=== PATIENT | male | born 1935 | race Caucasian/White ===

== ENCOUNTER 2017-03-18 13:37 | Inpatient (IN) | payer OTHER ==
[2017-03-18 16:03] VITALS: BMI 20.7
--- NOTE | 2017-03-18 18:34 | HP ---
Admission ROS [facility] Chief Complaint: I WANT TO GO TO REHAB Allergies/Adverse Reactions: Allergies Allergy/AdvReac Type Severity Reaction Status Date / Time No Known Allergies Allergy Verified 03/18/17 17:45 History of Present Illness: 81 YEARS OLD MALE WITH LONG HISTORY OF ALCOHOL NICOTINE DEPENDENCE HAS BPH HYPERTENSION HYPERLIPIDEMIA, CARDIAC STENT 2016 CANE FOR AMBULATION AND DEPRESSION IS ADMITTED TO REHAB Exam Limitations: No Limitations - Ebola screening Have you traveled outside of the country in the last 21 days: No Have you had contact with anyone from an Ebola affected area: No Have you been sick,other than usual withdrawal symptoms: No Do you have a fever: No - Review of Systems Constitutional: No Symptoms Reported EENT: reports: Blurred Vision (EYE GLASSES), Other (GLAUCOMA) Respiratory: reports: No Symptoms reported Cardiac: reports: Chest Pain (CHRONIC CHEST PAIN X 2 YEARS TREATED WITH NITRO SL , LAST DOSE 10/2016) GI: reports: No Symptoms Reported : reports: Frequency Musculoskeletal: reports: Joint Pain (KNEES ARTHRITIS - CANE) Integumentary: reports: No Symptoms Reported Neuro: reports: No Symptoms reported Endocrine: reports: No Symptoms Reported Hematology: reports: Blood Clots (CARDIOVASCULAR - PLAVIX) Psychiatric: reports: Judgement Intact, Mood/Affect Appropiate, Orientated x3 Other Systems: Reviewed and Negative Patient History - Patient Medical History Hx Anemia: No Hx Asthma: No Hx Chronic Obstructive Pulmonary Disease (COPD): No Hx Cancer: No Hx Cardiac Disorders: Yes (STENT 2015) Hx Congestive Heart Failure: No Hx Hypertension: Yes Hx Hypercholesterolemia: Yes Hx Pacemaker: No HX Cerebrovascular Accident: No Hx Seizures: No Hx Dementia: No Hx Diabetes: No Hx Gastrointestinal Disorders: No Hx Liver Disease: No Hx Genitourinary Disorders: Yes Hx Sexually Transmitted Disorders: No Hx Renal Disease (ESRD): No Hx Thyroid Disease: No Hx Human Immunodeficiency Virus (HIV): No Hx Hepatitis C: No Hx Depression: No Hx Suicide Attempt: No Hx Bipolar Disorder: No Hx Schizophrenia: No - Patient Surgical History Past Surgical History: Yes Hx Cataract Extraction: Yes (LEFT 2015) Hx Cardiac Surgery: Yes (STENT 2015) Hx Lung Surgery: No Hx Breast Surgery: No Hx Breast Biopsy: No Hx Abdominal Surgery: No Hx Appendectomy: No Hx Cholecystectomy: No Hx Genitourinary Surgery: No Hx Orthopedic Surgery: No Anesthesia Reaction: No - PPD History Previous Implant?: Yes Documented Results: Negative w/o proof Implanted On Prior [facility] Admission?: No PPD to be Administered?: Yes - Smoking Cessation Smoking history: Current every day smoker Have you smoked in the past 12 months: Yes Aproximately how many cigarettes per day: 10 Cigars Per Day: 0 Hx Chewing Tobacco Use: No Initiated information on smoking cessation: Yes 'Breaking Loose' booklet given: 03/18/17 - Substance & Tx. History Hx Alcohol Use: Yes Hx Substance Use: No Substance Use Type: Alcohol Hx Substance Use Treatment: Yes ([facility] 01/2017) - Substances Abused Alcohol Route: Oral Frequency: Daily Amount used: 1/2 PINT MAT Age of first use: 13 Date of Last Use: 03/03/17 Family Disease History - Family Disease History Family Disease History: Heart Disease: Brother (), CA: Mother () , Other: Father (), Mother, Brother, Sister () Admission Physical Exam S - Vital Signs Vital Signs: Vital Signs - 24 hr 03/18/17 15:54 Temperature 98.5 F Pulse Rate 71 Respiratory 18 Rate Blood Pressure 160/80 - Physical General Appearance: Yes: No Apparent Distress, Appropriately Dressed, Thin HEENTM: Yes: Hearing grossly Normal, Normal ENT Inspection, Normocephalic, Normal Voice, Other (EYE GLASSES GLAUCOMA) Respiratory: Yes: Chest Non-Tender, Lungs Clear, Normal Breath Sounds, No Respiratory Distress, No Accessory Muscle Use Neck: Yes: Supple, Trachea in good position Breast: Yes: Breasts Symetrical Cardiology: Yes: Regular Rhythm, Regular Rate, S1, S2 Abdominal: Yes: Non Tender, Soft, Decreased BS Genitourinary: Yes: Within Normal Limits Back: Yes: Normal Inspection Musculoskeletal: Yes: full range of Motion (SLOW LEGS CHANGING POSITION), Gait Steady (CANE), Muscle Pain (KNEES) Extremities: Yes: Non-Tender Neurological: Yes: Fully Oriented, Alert, Normal Mood/Affect, Normal Response Integumentary: Yes: Warm Lymphatic: Yes: Within Normal Limits - Diagnostic (1) Glaucoma Current Visit: Yes Status: Chronic Qualifiers: Glaucoma type: unspecified Laterality: unspecified laterality Qualified Code(s): H40.9 - Unspecified glaucoma (2) BPH (benign prostatic hyperplasia) Current Visit: Yes Status: Chronic Qualifiers: Lower urinary tract symptom presence: symptoms absent Qualified Code (s): N40.0 - Benign prostatic hyperplasia without lower urinary tract symptoms (3) Hypertension Current Visit: Yes Status: Chronic Qualifiers: Hypertension type: essential hypertension Qualified Code(s): I10 - Essential (primary) hypertension (4) Hyperlipidemia Current Visit: Yes Status: Chronic Qualifiers: Hyperlipidemia type: pure hypercholesterolemia Qualified Code(s): E78.00 - Pure hypercholesterolemia, unspecified; E78.0 - Pure hypercholesterolemia (5) Nicotine dependence Current Visit: Yes Status: Acute Qualifiers: Nicotine product type: cigarettes Substance use status: in withdrawal Qualified Code(s): F17.213 - Nicotine dependence, cigarettes, with withdrawal (6) Alcohol dependence with uncomplicated withdrawal Current Visit: Yes Status: Acute (7) S/P arterial stent Current Visit: Yes Status: Chronic (8) Chronic chest pain Current Visit: Yes Status: Chronic (9) Use of cane as ambulatory aid Current Visit: Yes Status: Chronic Cleared for Admission [facility] - Detox or Rehab [facility] Level of Care: Observation Bed Detox Regimen/Protocol: Not Applicable Claeared for Rehab Admission: Yes [facility] Breath Alcohol Content Breath Alcohol Content: 0 Urine Drug Screen - Results Drug Screen Negative: Yes
[2017-03-18] MEDS ORDERED: MAGNESIUM CITRATE 300 ML BOTTLE PO PRN (18:47)
[2017-03-18] MEDS ORDERED: LOPERAMIDE HCL 2 MG CAPSULE PO PRN (18:47)
[2017-03-18] MEDS ORDERED: MENTHOL/PHENOL 1 EACH UD MM PRN (18:47)
[2017-03-18] MEDS ORDERED: NICOTINE POLACRILEX 2 MG GUM BUC PRN (18:47)
[2017-03-18] MEDS ORDERED: hydrOXYzine PAMOATE 50 MG CAPSULE (FP) PO PRN (18:47)
[2017-03-18] MEDS ORDERED: ACETAMINOPHEN 325 MG TABLET (FP) PO PRN (18:47)
[2017-03-18] MEDS ORDERED: MAGNESIUM HYDROX 2400MG/30ML ORAL SUSPENSION 30 ML CUP PO PRN (18:47)
[2017-03-18] MEDS ORDERED: guaiFENesin/D-METHORPHAN HB 10 ML UNIT-DOSE CUPS PO PRN (18:47)
[2017-03-18] MEDS ORDERED: MAG HYDROX/AL HYDROX/SIMETH 30 ML UNIT-DOSE CUP PO PRN (18:47)
[2017-03-18] MEDS ORDERED: DOCUSATE SODIUM 100 MG CAPSULE (FP) PO PRN (18:56)
[2017-03-18] MEDS ORDERED: ATORVASTATIN CA 40 MG TABLET (FP) ONE (21:59)
[2017-03-18] MEDS ORDERED: TUBERCULIN PPD 5 TU/0.1ML VIAL ID ONE (22:00)
[2017-03-18] MEDS: ASPIRIN 81 MG CHEWABLE TABLETS PO SCH (22:08)
[2017-03-18] MEDS: METOPROLOL SUCCINATE 50 MG TAB.SR.24H (FP) PO SCH (22:09)
[2017-03-18] MEDS: CLOPIDOGREL BISULFATE 75 MG TABLET (FP) PO SCH (22:09)
[2017-03-18] MEDS: THIAMINE HCL 100 MG TABLET (FP) PO SCH (22:09)
[2017-03-18] MEDS: ATORVASTATIN CA 80 MG TABLET (FP) PO SCH (22:09)
[2017-03-18] MEDS: LISINOPRIL 5 MG TABLET (FP) PO SCH (22:09)
[2017-03-19] MEDS: METOPROLOL SUCCINATE 50 MG TAB.SR.24H (FP) PO SCH ×2 (08:03→10:21)
[2017-03-19] MEDS: LISINOPRIL 5 MG TABLET (FP) PO SCH ×2 (08:03→10:21)
[2017-03-19] MEDS ORDERED: ASPIRIN 81 MG CHEWABLE TABLETS PO SCH (10:00)
[2017-03-19 10:16] LABS: MCH 33.8 pg (25.7-33.7); MEAN CELL VOLUME 102.7 fl (80-96); PLATELET COUNT 177 K/MM3 (134-434); RDW 15.8 % (11.9-15.9); WHITE BLOOD COUNT 4.3 K/mm3 (4.0-10.0)
[2017-03-19] MEDS: CLOPIDOGREL BISULFATE 75 MG TABLET (FP) PO SCH (10:20)
[2017-03-19] MEDS: TAMSULOSIN HCL 0.4 MG CAP.ER.24H (FP) PO SCH (10:20)
[2017-03-19] MEDS: PRENATAL VITAMINS W/ FOLIC ACID TABLET (FP) PO SCH (10:20)
[2017-03-19] MEDS: NICOTINE 14 MG/24 HOURS TOPICAL PATCH TD SCH (10:20)
[2017-03-19] MEDS: ASPIRIN 81 MG CHEWABLE TABLETS PO SCH (10:20)
[2017-03-19] MEDS: TIMOLOL 0.5% OPHTHALMIC SOL 5 ML BOTTLE OU SCH ×3 (10:22→21:52)
[2017-03-19 10:28] LABS: ALBUMIN 3.3 g/dl (3.4-5.0); ANION GAP 5 (8-16); BILIRUBIN,TOTAL 0.7 mg/dL (0.2-1.0); CALCIUM 9.5 mg/dL (8.5-10.1); CO2 32 mmol/L (21-32); CREATININE 0.8 mg/dL (0.7-1.3); GLUCOSE,RANDOM 110 mg/dL (74-106); SGOT/AST 22 U/L (15-37); SGPT/ALT 21 U/L (12-78); TOT PROT 6.9 g/dl (6.4-8.2)
[2017-03-19 10:30] LABS: ALK PHOS 89 U/L (45-117)
[2017-03-19] MEDS: POLYETHYLENE GLYCOL 3350 119 GM BTL PO SCH (11:00)
[2017-03-19] MEDS: LATANOPROST 0.005% OPHTH SOLN 2.5ML BOTTLE OU SCH ×2 (11:05→21:52)
--- NOTE | 2017-03-19 11:17 | HP ---
Psychiatrist Admission - Data Date of interview: 03/19/17 Admission source: [facility] Identifying data: This is the first 5N inaptient rehabiltation admission for this 81 year old single Edgardo male, retired residing in assistent living house. Medical History: Patient reports history of BPH, HTN, hyperlipidemia, stents placed in 2016, glaucoma, left cataract extraction and arthritis in both knees. Smokes cigarettes 1/2 daily. Psychiatric History: Patient reports seen by a psychiatrist while in rehabilitation treatment to address depressed mood, no medications recommeded. Reports he also has a "gambling problems", spends "littile money for alcohol, cigarettes, playing lotto", feels depressed, sad, hopeless, states he needs help. Physical/Sexual Abuse/Trauma History: Denies history of abuse. Vital Signs: Vital Signs - 24 hr 03/18/17 03/18/17 03/19/17 15:54 22:07 00:33 Temperature 98.5 F 98.4 F Pulse Rate 71 65 Respiratory 18 18 18 Rate Blood Pressure 160/80 193/94 03/19/17 03:30 Temperature Pulse Rate Respiratory 18 Rate Blood Pressure Allergies/Adverse Reactions: Allergies Allergy/AdvReac Type Severity Reaction Status Date / Time No Known Allergies Allergy Verified 03/18/17 17:45 Date of last physical exam: 03/18/17 Concur with the findings of this exam: Yes - Substance Abuse/Tx History Hx Alcohol Use: Yes Hx Substance Use: No Substance Use Type: Alcohol (started at age 13, "I drink everything" daily ) Hx Substance Use Treatment: Yes - Admission Criteria Previous failed treatment: Yes Poor recovery environment: Yes Comorbidities: Yes Lacks judgement: Yes Mental Status Exam - Mental Status Exam Alert and Oriented to: Time, Place, Person Cognitive Function: Good Patient Appearance: Well Groomed Mood: Depressed, Sad, Anxious Affect: Appropriate Patient Behavior: Appropriate, Cooperative Speech Pattern: Clear, Appropriate Voice Loudness: Normal Thought Process: Intact, Goal Oriented Thought Disorder: Not Present Hallucinations: Denies Suicidal Ideation: Denies Homicidal Ideation: Denies Insight/Judgement: Fair Sleep: Difficulty falling asleep Appetite: Poor Muscle strength/Tone: Normal Gait/Station: Other (walking with a cane) Psychiatric Findings - Problem List (Premium 1, 2,3) (1) Nicotine dependence Current Visit: Yes Status: Acute Qualifiers: Nicotine product type: cigarettes Substance use status: in withdrawal Qualified Code(s): F17.213 - Nicotine dependence, cigarettes, with withdrawal (2) Chronic chest pain Current Visit: Yes Status: Chronic (3) Glaucoma Current Visit: Yes Status: Chronic Qualifiers: Glaucoma type: unspecified Laterality: unspecified laterality Qualified Code(s): H40.9 - Unspecified glaucoma (4) Hyperlipidemia Current Visit: Yes Status: Chronic Qualifiers: Hyperlipidemia type: pure hypercholesterolemia Qualified Code(s): E78.00 - Pure hypercholesterolemia, unspecified; E78.0 - Pure hypercholesterolemia (5) Hypertension Current Visit: Yes Status: Chronic Qualifiers: Hypertension type: essential hypertension Qualified Code(s): I10 - Essential (primary) hypertension (6) S/P arterial stent Current Visit: Yes Status: Chronic (7) Use of cane as ambulatory aid Current Visit: Yes Status: Chronic (8) Alcohol dependence Current Visit: Yes Status: Acute (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 Supportive therapy provided.
--- NOTE | 2017-03-19 11:33 | EKG ---
Test Reason : Blood Pressure : / mmHG Vent. Rate : 060 BPM Atrial Rate : 060 BPM P-R Int : 198 ms QRS Dur : 098 ms QT Int : 416 ms P-R-T Axes : 058 061 070 degrees QTc Int : 416 ms NORMAL SINUS RHYTHM MODERATE VOLTAGE CRITERIA FOR LVH, MAY BE NORMAL VARIANT BORDERLINE ECG NO PREVIOUS ECGS AVAILABLE Confirmed by TAM JORGE MD ([id number]) on 03/19/2017 11:33:07 AM Referred By: Confirmed By:TAM JORGE MD
[2017-03-19] MEDS ORDERED: ATORVASTATIN CA 40 MG TABLET (FP) ONE (20:23)
[2017-03-19] MEDS: diphenhydrAMINE HCL 50 MG CAPSULE PO PRN (21:52)
[2017-03-19] MEDS: THIAMINE HCL 100 MG TABLET (FP) PO SCH (21:52)
[2017-03-19] MEDS: ATORVASTATIN CA 80 MG TABLET (FP) PO SCH (21:53)
[2017-03-20] MEDS: LISINOPRIL 5 MG TABLET (FP) PO SCH (07:41)
[2017-03-20] MEDS: METOPROLOL SUCCINATE 50 MG TAB.SR.24H (FP) PO SCH (07:42)
[2017-03-20] MEDS: CLOPIDOGREL BISULFATE 75 MG TABLET (FP) PO SCH (10:29)
[2017-03-20] MEDS: ASPIRIN 81 MG CHEWABLE TABLETS PO SCH (10:29)
[2017-03-20] MEDS: PRENATAL VITAMINS W/ FOLIC ACID TABLET (FP) PO SCH (10:29)
[2017-03-20] MEDS: ESCITALOPRAM OXALATE 10 MG TABLET (FP) PO SCH (10:30)
[2017-03-20] MEDS: NICOTINE 14 MG/24 HOURS TOPICAL PATCH TD SCH (10:30)
[2017-03-20] MEDS: TAMSULOSIN HCL 0.4 MG CAP.ER.24H (FP) PO SCH (10:30)
[2017-03-20] MEDS: POLYETHYLENE GLYCOL 3350 119 GM BTL PO SCH (10:30)
[2017-03-20] MEDS: TIMOLOL 0.5% OPHTHALMIC SOL 5 ML BOTTLE OU SCH ×2 (10:31→21:35)
--- NOTE | 2017-03-20 11:35 | PN ---
[facility] Progress Note Note: patient has been on lisinopril 10 mgs po daily and also on 20 mgs po daily will give lisinopril 10 mg po daily@0600 bp monitoring Vital Signs Temperature 97.6 F 03/20/17 07:34 Pulse Rate 55 L 03/20/17 07:34 Respiratory Rate 18 03/20/17 07:34 Blood Pressure 166/79 03/20/17 07:34 O2 Sat by Pulse Oximetry (%) no complaint
[2017-03-20] MEDS ORDERED: LISINOPRIL 5 MG TABLET (FP) PO ONE (12:30)
[2017-03-20] MEDS: P-EPHED 60MG/TRIPROLIDI 2.5MG TABLET PO PRN (16:51)
[2017-03-20] MEDS: ATORVASTATIN CA 80 MG TABLET (FP) PO SCH (21:35)
[2017-03-20] MEDS: LATANOPROST 0.005% OPHTH SOLN 2.5ML BOTTLE OU SCH (21:35)
[2017-03-20] MEDS: diphenhydrAMINE HCL 50 MG CAPSULE PO PRN (21:36)
[2017-03-20] MEDS: THIAMINE HCL 100 MG TABLET (FP) PO SCH (21:36)
[2017-03-21] MEDS ORDERED: LISINOPRIL 5 MG TABLET (FP) PO SCH (06:00)
[2017-03-21] MEDS: METOPROLOL SUCCINATE 50 MG TAB.SR.24H (FP) PO SCH (06:21)
[2017-03-21] MEDS: LISINOPRIL 10 MG TABLET (FP) PO SCH (06:21)
[2017-03-21] MEDS: P-EPHED 60MG/TRIPROLIDI 2.5MG TABLET PO PRN ×2 (06:22→21:25)
[2017-03-21] MEDS: TAMSULOSIN HCL 0.4 MG CAP.ER.24H (FP) PO SCH (08:30)
[2017-03-21] MEDS ORDERED: PT OWN MED DRAWER 7, Y5N ONE ×2 (08:53→11:03)
[2017-03-21] MEDS: NICOTINE 14 MG/24 HOURS TOPICAL PATCH TD SCH (10:20)
[2017-03-21] MEDS: PRENATAL VITAMINS W/ FOLIC ACID TABLET (FP) PO SCH (10:21)
[2017-03-21] MEDS: CLOPIDOGREL BISULFATE 75 MG TABLET (FP) PO SCH (10:22)
[2017-03-21] MEDS: ESCITALOPRAM OXALATE 10 MG TABLET (FP) PO SCH (10:22)
[2017-03-21] MEDS: TIMOLOL 0.5% OPHTHALMIC SOL 5 ML BOTTLE OU SCH ×2 (10:23→21:25)
[2017-03-21] MEDS: POLYETHYLENE GLYCOL 3350 119 GM BTL PO SCH (10:23)
[2017-03-21] MEDS: ASPIRIN 81 MG CHEWABLE TABLETS PO SCH (10:26)
--- NOTE | 2017-03-21 13:15 | PN ---
S Progress Note Note: RPR REACTIVE 1:4,MHA REACTIVE,GIVE A HISTORY OF PENICILLIN INJECTION IN THE PAST , BICILLIN 2.4 MILLIOIN UNIT IM PATIENT WILL FOLLOW UP WITH HIS PMD AFTER DISCHARGE FROM REHAB
[2017-03-21] MEDS ORDERED: PENICILLIN G BENZATHINE 2,400,000 UNIT/4 ML PFS IM ONE (14:00)
[2017-03-21] MEDS: LATANOPROST 0.005% OPHTH SOLN 2.5ML BOTTLE OU SCH (21:25)
[2017-03-21] MEDS: ATORVASTATIN CA 80 MG TABLET (FP) PO SCH (21:25)
[2017-03-21] MEDS: THIAMINE HCL 100 MG TABLET (FP) PO SCH (21:26)
[2017-03-21] MEDS: diphenhydrAMINE HCL 50 MG CAPSULE PO PRN (21:26)
[2017-03-22] MEDS: METOPROLOL SUCCINATE 50 MG TAB.SR.24H (FP) PO SCH (06:19)
[2017-03-22] MEDS: LISINOPRIL 10 MG TABLET (FP) PO SCH (06:19)
[2017-03-22] MEDS: TAMSULOSIN HCL 0.4 MG CAP.ER.24H (FP) PO SCH (09:30)
[2017-03-22] MEDS: TIMOLOL 0.5% OPHTHALMIC SOL 5 ML BOTTLE OU SCH ×2 (10:02→22:03)
[2017-03-22] MEDS: ESCITALOPRAM OXALATE 10 MG TABLET (FP) PO SCH (10:03)
[2017-03-22] MEDS: CLOPIDOGREL BISULFATE 75 MG TABLET (FP) PO SCH (10:03)
[2017-03-22] MEDS: PRENATAL VITAMINS W/ FOLIC ACID TABLET (FP) PO SCH (10:03)
[2017-03-22] MEDS: ASPIRIN 81 MG CHEWABLE TABLETS PO SCH (10:03)
[2017-03-22] MEDS: POLYETHYLENE GLYCOL 3350 119 GM BTL PO SCH (10:04)
[2017-03-22] MEDS: NICOTINE 14 MG/24 HOURS TOPICAL PATCH TD SCH (10:04)
[2017-03-22] MEDS: THIAMINE HCL 100 MG TABLET (FP) PO SCH (22:03)
[2017-03-22] MEDS: ATORVASTATIN CA 80 MG TABLET (FP) PO SCH (22:03)
[2017-03-22] MEDS: diphenhydrAMINE HCL 50 MG CAPSULE PO PRN (22:03)
[2017-03-22] MEDS: P-EPHED 60MG/TRIPROLIDI 2.5MG TABLET PO PRN (22:06)
[2017-03-22] MEDS: LATANOPROST 0.005% OPHTH SOLN 2.5ML BOTTLE OU SCH (22:49)
[2017-03-23] MEDS: LISINOPRIL 10 MG TABLET (FP) PO SCH (06:47)
[2017-03-23] MEDS: METOPROLOL SUCCINATE 50 MG TAB.SR.24H (FP) PO SCH (06:47)
[2017-03-23] MEDS: TAMSULOSIN HCL 0.4 MG CAP.ER.24H (FP) PO SCH (09:30)
[2017-03-23] MEDS: ASPIRIN 81 MG CHEWABLE TABLETS PO SCH (10:18)
[2017-03-23] MEDS: PRENATAL VITAMINS W/ FOLIC ACID TABLET (FP) PO SCH (10:18)
[2017-03-23] MEDS: CLOPIDOGREL BISULFATE 75 MG TABLET (FP) PO SCH (10:18)
[2017-03-23] MEDS: ESCITALOPRAM OXALATE 10 MG TABLET (FP) PO SCH (10:18)
[2017-03-23] MEDS: TIMOLOL 0.5% OPHTHALMIC SOL 5 ML BOTTLE OU SCH ×2 (10:19→21:41)
[2017-03-23] MEDS: NICOTINE 14 MG/24 HOURS TOPICAL PATCH TD SCH (10:20)
[2017-03-23] MEDS: POLYETHYLENE GLYCOL 3350 119 GM BTL PO SCH (10:20)
[2017-03-23] MEDS: LIDOCAINE 5% TOPICAL PATCH TP SCH (11:39)
[2017-03-23] MEDS: THIAMINE HCL 100 MG TABLET (FP) PO SCH (21:40)
[2017-03-23] MEDS: ATORVASTATIN CA 80 MG TABLET (FP) PO SCH (21:40)
[2017-03-23] MEDS: LIDOCAINE PATCH REMOVAL MC SCH (21:40)
[2017-03-23] MEDS: diphenhydrAMINE HCL 50 MG CAPSULE PO PRN (21:41)
[2017-03-23] MEDS: LATANOPROST 0.005% OPHTH SOLN 2.5ML BOTTLE OU SCH (21:41)
[2017-03-24] MEDS: METOPROLOL SUCCINATE 50 MG TAB.SR.24H (FP) PO SCH (06:34)
[2017-03-24] MEDS: LISINOPRIL 10 MG TABLET (FP) PO SCH (06:34)
[2017-03-24] MEDS: TAMSULOSIN HCL 0.4 MG CAP.ER.24H (FP) PO SCH (09:30)
[2017-03-24] MEDS: ESCITALOPRAM OXALATE 10 MG TABLET (FP) PO SCH (10:35)
[2017-03-24] MEDS: ASPIRIN 81 MG CHEWABLE TABLETS PO SCH (10:35)
[2017-03-24] MEDS: CLOPIDOGREL BISULFATE 75 MG TABLET (FP) PO SCH (10:35)
[2017-03-24] MEDS: PRENATAL VITAMINS W/ FOLIC ACID TABLET (FP) PO SCH (10:35)
[2017-03-24] MEDS: POLYETHYLENE GLYCOL 3350 119 GM BTL PO SCH (10:36)
[2017-03-24] MEDS: LIDOCAINE 5% TOPICAL PATCH TP SCH (10:36)
[2017-03-24] MEDS: NICOTINE 14 MG/24 HOURS TOPICAL PATCH TD SCH (10:36)
[2017-03-24] MEDS: TIMOLOL 0.5% OPHTHALMIC SOL 5 ML BOTTLE OU SCH ×2 (10:37→21:42)
[2017-03-24] MEDS: LATANOPROST 0.005% OPHTH SOLN 2.5ML BOTTLE OU SCH (21:42)
[2017-03-24] MEDS: ATORVASTATIN CA 80 MG TABLET (FP) PO SCH (21:42)
[2017-03-24] MEDS: THIAMINE HCL 100 MG TABLET (FP) PO SCH (21:42)
[2017-03-24] MEDS: LIDOCAINE PATCH REMOVAL MC SCH (21:42)
[2017-03-24] MEDS: diphenhydrAMINE HCL 50 MG CAPSULE PO PRN (21:43)
[2017-03-25] MEDS: METOPROLOL SUCCINATE 50 MG TAB.SR.24H (FP) PO SCH (06:13)
[2017-03-25] MEDS: LISINOPRIL 10 MG TABLET (FP) PO SCH (06:13)
[2017-03-25] MEDS: TAMSULOSIN HCL 0.4 MG CAP.ER.24H (FP) PO SCH (09:24)
[2017-03-25] MEDS: ASPIRIN 81 MG CHEWABLE TABLETS PO SCH (10:24)
[2017-03-25] MEDS: ESCITALOPRAM OXALATE 10 MG TABLET (FP) PO SCH (10:25)
[2017-03-25] MEDS: LIDOCAINE 5% TOPICAL PATCH TP SCH (10:27)
[2017-03-25] MEDS: POLYETHYLENE GLYCOL 3350 119 GM BTL PO SCH (10:28)
[2017-03-25] MEDS: NICOTINE 14 MG/24 HOURS TOPICAL PATCH TD SCH (10:29)
[2017-03-25] MEDS: CLOPIDOGREL BISULFATE 75 MG TABLET (FP) PO SCH (10:30)
[2017-03-25] MEDS: TIMOLOL 0.5% OPHTHALMIC SOL 5 ML BOTTLE OU SCH ×2 (10:30→21:32)
[2017-03-25] MEDS: PRENATAL VITAMINS W/ FOLIC ACID TABLET (FP) PO SCH (10:30)
[2017-03-25] MEDS: LIDOCAINE PATCH REMOVAL MC SCH (21:32)
[2017-03-25] MEDS: ATORVASTATIN CA 80 MG TABLET (FP) PO SCH (21:32)
[2017-03-25] MEDS: LATANOPROST 0.005% OPHTH SOLN 2.5ML BOTTLE OU SCH (21:32)
[2017-03-25] MEDS: THIAMINE HCL 100 MG TABLET (FP) PO SCH (21:32)
[2017-03-25] MEDS: diphenhydrAMINE HCL 50 MG CAPSULE PO PRN (21:32)
[2017-03-26] MEDS: LISINOPRIL 10 MG TABLET (FP) PO SCH (06:13)
[2017-03-26] MEDS: METOPROLOL SUCCINATE 50 MG TAB.SR.24H (FP) PO SCH (06:13)
[2017-03-26] MEDS: TIMOLOL 0.5% OPHTHALMIC SOL 5 ML BOTTLE OU SCH ×2 (10:06→21:41)
[2017-03-26] MEDS: POLYETHYLENE GLYCOL 3350 119 GM BTL PO SCH (10:07)
[2017-03-26] MEDS: TAMSULOSIN HCL 0.4 MG CAP.ER.24H (FP) PO SCH (10:07)
[2017-03-26] MEDS: CLOPIDOGREL BISULFATE 75 MG TABLET (FP) PO SCH (10:07)
[2017-03-26] MEDS: PRENATAL VITAMINS W/ FOLIC ACID TABLET (FP) PO SCH (10:07)
[2017-03-26] MEDS: ASPIRIN 81 MG CHEWABLE TABLETS PO SCH (10:07)
[2017-03-26] MEDS: NICOTINE 14 MG/24 HOURS TOPICAL PATCH TD SCH (10:07)
[2017-03-26] MEDS: LIDOCAINE 5% TOPICAL PATCH TP SCH (10:08)
[2017-03-26] MEDS: ESCITALOPRAM OXALATE 10 MG TABLET (FP) PO SCH (10:09)
[2017-03-26] MEDS: LIDOCAINE PATCH REMOVAL MC SCH (21:40)
[2017-03-26] MEDS: diphenhydrAMINE HCL 50 MG CAPSULE PO PRN (21:40)
[2017-03-26] MEDS: THIAMINE HCL 100 MG TABLET (FP) PO SCH (21:40)
[2017-03-26] MEDS: ATORVASTATIN CA 80 MG TABLET (FP) PO SCH (21:40)
[2017-03-26] MEDS: LATANOPROST 0.005% OPHTH SOLN 2.5ML BOTTLE OU SCH (21:41)
[2017-03-27] MEDS: LISINOPRIL 10 MG TABLET (FP) PO SCH (06:39)
[2017-03-27] MEDS: METOPROLOL SUCCINATE 50 MG TAB.SR.24H (FP) PO SCH (06:39)
[2017-03-27] MEDS: TAMSULOSIN HCL 0.4 MG CAP.ER.24H (FP) PO SCH (09:30)
[2017-03-27] MEDS: ASPIRIN 81 MG CHEWABLE TABLETS PO SCH (10:14)
[2017-03-27] MEDS: PRENATAL VITAMINS W/ FOLIC ACID TABLET (FP) PO SCH (10:14)
[2017-03-27] MEDS: LIDOCAINE 5% TOPICAL PATCH TP SCH (10:15)
[2017-03-27] MEDS: ESCITALOPRAM OXALATE 10 MG TABLET (FP) PO SCH (10:15)
[2017-03-27] MEDS: POLYETHYLENE GLYCOL 3350 119 GM BTL PO SCH (10:15)
[2017-03-27] MEDS: CLOPIDOGREL BISULFATE 75 MG TABLET (FP) PO SCH (10:15)
[2017-03-27] MEDS: NICOTINE 14 MG/24 HOURS TOPICAL PATCH TD SCH (10:17)
[2017-03-27] MEDS: TIMOLOL 0.5% OPHTHALMIC SOL 5 ML BOTTLE OU SCH (10:17)
[2017-03-27] MEDS: NITROGLYCERIN SUBLINGUAL 1/150 0.4 MG TAB SL PRN (15:25)
--- NOTE | 2017-03-27 16:01 | PN ---
S Progress Note (SOAP) Subjective: patient with chronic chest pain recent insertion of cardiac stent, multiple medications c/o chest pain, mild since yesterday, given meds bynurse with no relief today. EKG shows bradycardia otherwise no sig change at this time. 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 REpeat EKG if any change in condition- call MD.
[2017-03-27] MEDS ORDERED: chlordiazePOXIDE HCL 10 MG CAPSULE PO ONE (16:02)
[2017-03-27] MEDS: ATORVASTATIN CA 80 MG TABLET (FP) PO SCH (23:06)
[2017-03-27] MEDS: LIDOCAINE PATCH REMOVAL MC SCH (23:06)
[2017-03-27] MEDS: THIAMINE HCL 100 MG TABLET (FP) PO SCH (23:06)
[2017-03-28] MEDS: LISINOPRIL 10 MG TABLET (FP) PO SCH (06:18)
[2017-03-28 07:30] VITALS: TEMP 98.3
--- NOTE | 2017-03-28 09:24 | EKG ---
Test Reason : Blood Pressure : / mmHG Vent. Rate : 051 BPM Atrial Rate : 051 BPM P-R Int : 190 ms QRS Dur : 094 ms QT Int : 454 ms P-R-T Axes : 047 038 043 degrees QTc Int : 418 ms SINUS BRADYCARDIA MINIMAL VOLTAGE CRITERIA FOR LVH, MAY BE NORMAL VARIANT CANNOT RULE OUT INFERIOR INFARCT , AGE UNDETERMINED Confirmed by GRACE FOX, LITTLE ([id number]) on 03/28/2017 9:24:20 AM Referred By: Abdiel WYMAN Confirmed By:LITTLE EDWARDS MD
[2017-03-28] MEDS: NICOTINE 14 MG/24 HOURS TOPICAL PATCH TD SCH (10:23)
[2017-03-28] MEDS: TAMSULOSIN HCL 0.4 MG CAP.ER.24H (FP) PO SCH (10:24)
[2017-03-28] MEDS: CLOPIDOGREL BISULFATE 75 MG TABLET (FP) PO SCH (10:24)
[2017-03-28] MEDS: ESCITALOPRAM OXALATE 10 MG TABLET (FP) PO SCH (10:24)
[2017-03-28] MEDS: PRENATAL VITAMINS W/ FOLIC ACID TABLET (FP) PO SCH (10:24)
[2017-03-28] MEDS: ASPIRIN 81 MG CHEWABLE TABLETS PO SCH (10:24)
[2017-03-28] MEDS: POLYETHYLENE GLYCOL 3350 119 GM BTL PO SCH (10:24)
[2017-03-28] MEDS: LIDOCAINE 5% TOPICAL PATCH TP SCH (10:25)
--- NOTE | 2017-03-28 12:38 | PN ---
[facility] Progress Note Note: patient has no chest pain,no sob, Vital Signs Temperature 98.3 F 03/28/17 07:20 Pulse Rate 56 L 03/28/17 10:00 Respiratory Rate 18 03/28/17 10:00 Blood Pressure 149/75 03/28/17 10:00 O2 Sat by Pulse Oximetry (%) no chest ,no sob,no dizziness ekg on 03/27/17 sinus bradycardia ate 51 patient would like to continue eye drop to resume timolol and xalatan opth close monitoring
[2017-03-28] MEDS: TIMOLOL 0.5% OPHTHALMIC SOL 5 ML BOTTLE OU SCH ×2 (14:52→21:31)
[2017-03-28] MEDS ORDERED: amLODIPine BESYLATE 5 MG TABLET (FP) PO ONE (21:24)
[2017-03-28] MEDS: THIAMINE HCL 100 MG TABLET (FP) PO SCH (21:31)
[2017-03-28] MEDS: ATORVASTATIN CA 80 MG TABLET (FP) PO SCH (21:31)
[2017-03-28] MEDS: LIDOCAINE PATCH REMOVAL MC SCH (21:32)
[2017-03-28] MEDS: NITROGLYCERIN SUBLINGUAL 1/150 0.4 MG TAB SL PRN ×2 (21:32→21:40)
[2017-03-28] MEDS ORDERED: LATANOPROST 0.005% OPHTH SOLN 2.5ML BOTTLE OU SCH (22:00)
--- NOTE | 2017-03-28 22:43 | PN ---
S Progress Note Note: patient reports chest pain, nitro sl x 2 no effect ambulance was called, information provided to KUSH Recinos
[2017-03-28 23:43] VITALS: BP 186/89; PULSE 64
== END 2017-03-28 22:25 | disposition short-term general hospital (02) | DRG 895 ==
LOC: YASAS 13:37 → Y5N 19:38
PROVIDERS: ADMIT Psychiatry & Neurology Psychiatry; ATTEND Psychiatry & Neurology Psychiatry
PROC: HZ42ZZZ Group Counseling for Substance Abuse Treatment, Cognitive-Behavioral (ICD-10-PCS; principal; 2017-03-28)
DX: F10.20 Alcohol dependence, uncomplicated (principal); F17.213 Nicotine dependence, cigarettes, with withdrawal; F19.24 Other psychoactive substance dependence with psychoactive substance-induced mood disorder; R07.89 Other chest pain; I25.10 Atherosclerotic heart disease of native coronary artery without angina pectoris; I10 Essential (primary) hypertension; Z95.5 Presence of coronary angioplasty implant and graft; R26.89 Other abnormalities of gait and mobility; Z99.89 Dependence on other enabling machines and devices; H40.9 Unspecified glaucoma
CPT/HCPCS: 36415; 80053; 85027; 86593; 86780; 93005; 93010

== ENCOUNTER 2017-03-28 22:46 | Inpatient (IN) | payer OTHER ==
[2017-03-28 23:32] LABS: BASOPHIL 0.8 % (0-2.0); EOSINOPHIL 1.9 % (0-4.5); MCH 34.7 pg (25.7-33.7); MEAN CELL VOLUME 102.1 fl (80-96); MEAN PLT VOLUME 9.8 fl (7.5-11.1); NEUTROPHILS 44.2 % (42.8-82.8); PLATELET COUNT 188 K/MM3 (134-434); RDW 15.6 % (11.9-15.9); WHITE BLOOD COUNT 3.9 K/mm3 (4.0-10.0)
[2017-03-28 23:33] VITALS: BMI 23.6
--- NOTE | 2017-03-28 23:38 | PDOC ---
History of Present Illness - History of Present Illness Aspirin Received prior to arrival: Yes: 81 mg x 4, provided by EMS <Laurence Desouza - Last Filed: 03/29/17 01:02> - General History Source: Patient Exam Limitations: No Limitations - History of Present Illness Initial Comments: 03/29/17 00:40 The patient is a 81 year old male, with a significant past medical history of hypertension, hyperlipidemia, BPH, stents placed in 2015, glaucoma, left cataract extraction, and arthritis in both knees, who presents to the ED from [facility] complaining of chest discomfort for approximately 2 days. The patient describes his discomfort as a tightness. The patient reports 1 episode yesterday and 1 episode today, which has now subsided. On transport, patient reports he was given nitroglycerin and aspirin with relief of his chest discomfort.He reports his tightness is localized in the mid sternum in the second intercostal space and is nonpleuritic. He denies any associated shortness of breath, diaphoresis, palpitations, or lower extremity edema. The patient reports the last time he had this sort of discomfort in August 2016 he had cardiac stents placed. The patient denies any fever, chills, cough, headache, or dizziness. The patient reports he has had elevated blood pressure over the past 3 days. The patient denies any abdominal pain, nausea, vomiting, diarrhea, or constipation. He denies any recent travel or sick contacts. Allergies: NKDA Past Surgical History: Cardiac Stents Social History: Current everyday smoker. ETOH abuse. No recreational drug use. <Marisela Lawler - Last Filed: 03/29/17 01:32> - General Chief Complaint: Chest Pain Stated Complaint: CHEST PAIN Time Seen by Provider: 03/28/17 23:37 Past History - Past Medical History Anemia: No Asthma: No Cancer: No Cardiac Disorders: Yes (STENTS IN 2015) CVA: No COPD: No CHF: No Dementia: No Diabetes: No GI Disorders: No Disorders: Yes (BPH) HTN: Yes Hypercholesterolemia: Yes Kidney Stones: No Liver Disease: No Suicide Attempt (Hx): No Seizures: No Thyroid Disease: No - Surgical History Abdominal Surgery: No Appendectomy: No Cardiac Surgery: Yes (STENT 2015) Cholecystectomy: No Lung Surgery: No Orthopedic Surgery: No - Reproductive History Testicular Surgery: No - Psycho/Social/Smoking Cessation Hx Anxiety: No Suicidal Ideation: No Smoking History: Never smoked Have you smoked in the past 12 months: Yes Number of Cigarettes Smoked Daily: 10 Cigars Per Day: 0 Information on smoking cessation initiated: No 'Breaking Loose' booklet given: 03/18/17 Hx Alcohol Use: Yes Drug/Substance Use Hx: No Substance Use Type: Alcohol Hx Substance Use Treatment: Yes <Laurence Desouza - Last Filed: 03/29/17 01:02> <Marisela Lawler - Last Filed: 03/29/17 01:32> - Past Medical History Allergies/Adverse Reactions: Allergies Allergy/AdvReac Type Severity Reaction Status Date / Time No Known Allergies Allergy Verified 03/18/17 17:45 Home Medications: Ambulatory Orders Nitroglycerin Sublingual [Nitrostat -] 0.4 mg SL ONCE 03/18/17 Quetiapine Fumarate [Seroquel -] 25 mg PO BID 03/18/17 Sertraline HCl [Zoloft -] 25 mg PO DAILY 03/18/17 Aspirin [ASA -] 81 mg PO DAILY #30 tab 03/28/17 Atorvastatin Ca [Lipitor] 80 mg PO HS #30 tab 03/28/17 Clopidogrel Bisulfate [Plavix -] 75 mg PO DAILY #30 tab 03/28/17 Fluticasone Propionate [Flovent Diskus] 50 mcg IH BID #1 inh 03/28/17 Latanoprost 0.005% Eye Drops [Xalatan 0.005% Eye Drops -] 1 drop AD HS #1 bottle 03/28/17 Lisinopril [Prinivil] 10 mg PO DAILY@0600 #30 tablet 03/28/17 Metoprolol Succinate [Toprol XL -] 50 mg PO DAILY #30 tab 03/28/17 Tamsulosin HCl [Flomax -] 0.4 mg PO DAILY #30 cap 03/28/17 Timolol 0.5% [Timoptic 0.5%] 1 drop OU DAILY #1 bottle 03/28/17 Review of Systems - Review of Systems Able to Perform ROS?: Yes Comments:: 03/29/17 00:41 GENERAL/CONSTITUTIONAL: No fever or chills. No weakness. HEAD, EYES, EARS, NOSE AND THROAT: No change in vision. No ear pain or discharge. No sore throat. CARDIOVASCULAR: Yes: +chest discomfort/tightness. No shortness of breath. RESPIRATORY: No cough, wheezing, or hemoptysis. GASTROINTESTINAL: No nausea, vomiting, diarrhea or constipation. GENITOURINARY: No dysuria, frequency, or change in urination. MUSCULOSKELETAL: No joint or muscle swelling or pain. No neck or back pain. SKIN: No rash NEUROLOGIC: No headache, vertigo, loss of consciousness, or change in strength/ sensation. ENDOCRINE: No increased thirst. No abnormal weight change. HEMATOLOGIC/LYMPHATIC: No anemia, easy bleeding, or history of blood clots. ALLERGIC/IMMUNOLOGIC: No hives or skin allergy. <Marisela Lawler - Last Filed: 03/29/17 01:32> *Physical Exam - Vital Signs Last Vital Signs Temp Pulse Resp BP Pulse Ox 97.8 F 52 L 16 151/75 100 03/28/17 23:00 03/28/17 23:00 03/28/17 23:00 03/28/17 23:00 03/28/17 23:00 - Physical Exam Comments: GENERAL: Awake, alert, and fully oriented, in no acute distress HEAD: No signs of trauma EYES: PERRLA, EOMI, sclera anicteric, conjunctiva clear ENT: Auricles normal inspection, hearing grossly normal, nares patent, oropharynx clear without exudates. Moist mucosa NECK: Normal ROM, supple, no lymphadenopathy, JVD, or masses LUNGS: Breath sounds equal, clear to auscultation bilaterally. No wheezes, and no crackles HEART: Regular rate and rhythm, normal S1 and S2, no murmurs, rubs or gallops ABDOMEN: Soft, nontender, normoactive bowel sounds. No guarding, no rebound. No masses EXTREMITIES: Normal range of motion, no edema. No clubbing or cyanosis. No cords, erythema, or tenderness NEUROLOGICAL: Cranial nerves II through XII grossly intact. Normal speech, normal gait SKIN: Warm, Dry, normal turgor, no rashes or lesions noted. <Laurence Desouza - Last Filed: 03/29/17 01:02> - Vital Signs Last Vital Signs Temp Pulse Resp BP Pulse Ox 97.8 F 52 L 16 151/75 100 03/28/17 23:00 03/28/17 23:00 03/28/17 23:00 03/28/17 23:00 03/28/17 23:00 <Marisela Lawler - Last Filed: 03/29/17 01:32> Heart Score/ECG Review - History History: Moderately suspicious - Electrocardiogram EKG: Normal - Age Age: >/= 65 - Risk Factors Risk Factors Heart Score: Yes Hx Hypercholesterolemia, Yes Hx Hypertension, Yes Positive family hx of cardiac disease Based on the list above the patient has:: >/=3 risk factors or Hx atherosclerotic disease - Troponin Troponin: </= normal limit - Score Heart Score - Total: 5 <Laurence Desouza - Last Filed: 03/29/17 01:02> ED Treatment Course - LABORATORY CBC & Chemistry Diagram: 03/28/17 23:11 03/28/17 23:11 - ADDITIONAL ORDERS Additional order review: 03/28/17 23:11 RBC 3.45 L MCV 102.1 H MCHC 34.0 RDW 15.6 MPV 9.8 Neutrophils % 44.2 Lymphocytes % 37.5 Monocytes % 15.6 H Eosinophils % 1.9 Basophils % 0.8 <Laurence Desouza - Last Filed: 03/29/17 01:02> - LABORATORY CBC & Chemistry Diagram: 03/28/17 23:11 03/28/17 23:11 - ADDITIONAL ORDERS Additional order review: Laboratory Results 03/28/17 03/28/17 03/28/17 23:11 23:11 22:30 INR 1.11 Sodium 140 Potassium 3.9 Chloride 104 Carbon Dioxide 30 Anion Gap 6 L BUN 22 H D Creatinine 0.8 Creat Clearance w eGFR > 60 Random Glucose 94 Calcium 8.8 Magnesium 1.9 Total Bilirubin 0.3 D AST 21 ALT 28 D Alkaline Phosphatase 93 Creatine Kinase 57 Troponin I 0.02 B-Natriuretic Peptide 483.07 H Total Protein 6.9 Albumin 3.3 L 03/28/17 23:11 RBC 3.45 L MCV 102.1 H MCHC 34.0 RDW 15.6 MPV 9.8 Neutrophils % 44.2 Lymphocytes % 37.5 Monocytes % 15.6 H Eosinophils % 1.9 Basophils % 0.8 <Marisela Lawler - Last Filed: 03/29/17 01:32> *DC/Admit/Observation/Transfer - Discharge Dispostion Admit: Yes <Laurence Desouza - Last Filed: 03/29/17 01:02> - Attestations Scribe Attestion: 03/29/17 00:41 Documentation prepared by Marisela Lawler, acting as territory sales manager medical for Laurence Desouza MD. <Marisela Lawler - Last Filed: 03/29/17 01:32> Diagnosis at time of Disposition: Chest pain Qualifiers: Chest pain type: unspecified Qualified Code(s): R07.9 - Chest pain, unspecified - Discharge Dispostion Condition at time of disposition: Stable
[2017-03-28 23:56] LABS: ALBUMIN 3.3 g/dl (3.4-5.0); ANION GAP 6 (8-16); BILIRUBIN,TOTAL 0.3 mg/dL (0.2-1.0); CALCIUM 8.8 mg/dL (8.5-10.1); CO2 30 mmol/L (21-32); CREATININE 0.8 mg/dL (0.7-1.3); GLUCOSE,RANDOM 94 mg/dL (74-106); MAGNESIUM 1.9 mg/dL (1.8-2.4); SGOT/AST 21 U/L (15-37); SGPT/ALT 28 U/L (12-78); TOT PROT 6.9 g/dl (6.4-8.2)
[2017-03-28 23:59] LABS: ALK PHOS 93 U/L (45-117); CPK 57 IU/L (39-308); TROPONIN I 0.02 ng/ml (0.00-0.05)
[2017-03-29 00:06] LABS: INR 1.11 (0.82-1.09); PROTHROMBIN TIME (PATIENT) 12.2 SEC (9.98-11.88)
--- NOTE | 2017-03-29 01:56 | HP ---
CHIEF COMPLAINT: "I have uncomfortable feeling in my chest" PCP: Dr. Watson in [place] HISTORY OF PRESENT ILLNESS: 81M PMH of HTN, HLD, alcohol abuse, CAD s/p cardiac cath with stent placement presents to the ED from [facility] with a 2 day history of chest pain/ discomfort. Patient states he has had 2 caths one of them was this year sometime around August-September and one was last year. He does not remember how many stents he has. Per detox/rehab H&P patient had a cardiac cath in 2016 with stent placement. No record or mention of cath this year. States he had his cardiac workups done at [facility]. The patient endorses his discomfort as a tightness. Patient had one episode of chest pain yesterday and one today. Patient was given sublingual nitroglycerin which relieved his chest discomfort.He denies the chest pain being positional. He received 4 baby aspirins from EMS en route to the hospital. He also received sublingual nitroglycerin at [facility] per EMR. He also endorses to me that his blood pressure has not been well controlled and has been high for the past few days. Upon reviewing the vital signs from [facility] on admission to detox on 03/18/17 his SBP was 190's and has been in the 140's-160's during his stay with a couple of readings in the 170's-180's. He states the chest tightness is is midsternal and does not radiate to his arm or jaw. He denies numbness or tingling in his extremities. He denies shortness of breath, diaphoresis, palpitations, or lower extremity edema. The patient denies any fever, chills, cough, headache, or dizziness. The patient reports he has had elevated blood pressure over the past 3 days. The patient denies any abdominal pain, nausea, vomiting, diarrhea, or constipation. He denies any recent travel or sick contacts. Expressed he would like to go back to rehab to complete treatment and interest in alcoholic anonymous. ER course was notable for: (1)Labs (2)EKG (3)CXR Recent Travel:Denies PAST MEDICAL HISTORY: HTN, HLD, CAD, BPH, Glaucoma, cataracts, arthritis- ambulates with cane at baseline, alcohol abuse, depression, possible asthma/ COPD PAST SURGICAL HISTORY: glaucoma/cataracts surgery. cardiac catheterization Social History: Smoking:Current everyday smoker Alcohol:Patient suffers from alcoholism Drugs: Denies Family History: Allergies No Known Allergies Allergy (Verified 03/18/17 17:45) HOME MEDICATIONS: Home Medications Medication Instructions Recorded Nitroglycerin Sublingual 0.4 mg SL ONCE 03/18/17 [Nitrostat -] Quetiapine Fumarate [Seroquel -] 25 mg PO BID 03/18/17 Sertraline HCl [Zoloft -] 25 mg PO DAILY 03/18/17 Aspirin [ASA -] 81 mg PO DAILY #30 tab 03/28/17 Atorvastatin Ca [Lipitor] 80 mg PO HS #30 tab 03/28/17 Clopidogrel Bisulfate [Plavix -] 75 mg PO DAILY #30 tab 03/28/17 Fluticasone Propionate [Flovent 50 mcg IH BID #1 inh 03/28/17 Diskus] Latanoprost 0.005% Eye Drops 1 drop AD HS #1 bottle 03/28/17 [Xalatan 0.005% Eye Drops -] Lisinopril [Prinivil] 10 mg PO DAILY@0600 #30 tablet 03/28/17 Metoprolol Succinate [Toprol XL -] 50 mg PO DAILY #30 tab 03/28/17 Tamsulosin HCl [Flomax -] 0.4 mg PO DAILY #30 cap 03/28/17 Timolol 0.5% [Timoptic 0.5%] 1 drop OU DAILY #1 bottle 03/28/17 REVIEW OF SYSTEMS CONSTITUTIONAL: Absent: fever, chills, diaphoresis, generalized weakness, malaise, loss of appetite, weight change HEENT: Absent: rhinorrhea, nasal congestion, throat pain, throat swelling, difficulty swallowing, mouth swelling, ear pain, eye pain, visual changes CARDIOVASCULAR: Absent: syncope, palpitations, irregular heart rate, lightheadedness, peripheral edema Present: chest pain RESPIRATORY: Absent: cough, shortness of breath, dyspnea with exertion, orthopnea, wheezing, stridor, hemoptysis GASTROINTESTINAL: Absent: abdominal pain, abdominal distension, nausea, vomiting, diarrhea, constipation, melena, hematochezia GENITOURINARY: Absent: dysuria, frequency, urgency, hesitancy, hematuria, flank pain, genital pain MUSCULOSKELETAL: Absent: myalgia, arthralgia, joint swelling, back pain, neck pain SKIN: Absent: rash, itching, pallor HEMATOLOGIC/IMMUNOLOGIC: Absent: easy bleeding, easy bruising, lymphadenopathy, frequent infections ENDOCRINE: Absent: unexplained weight gain, unexplained weight loss, heat intolerance, cold intolerance NEUROLOGIC: Absent: headache, focal weakness or paresthesias, dizziness, unsteady gait, seizure, mental status changes, bladder or bowel incontinence PSYCHIATRIC: Absent: suicidal or homicidal ideation, hallucinations. Present:anxiety, depression PHYSICAL EXAMINATION GENERAL: Awake, alert, and fully oriented to person place and time. No acute distress. EYES: Pupils equal, round and reactive to light, extraocular movements intact EARS, NOSE, THROAT: Moist mucous membranes. NECK: No JVD LUNGS: Breath sounds equal, clear to auscultation bilaterally. No wheezes, and no crackles. No accessory muscle use. HEART: Regular rate and rhythm, normal S1 and S2 without murmur ABDOMEN: Soft, nontender, not distended, normoactive bowel sounds, no guarding, no rebound MUSCULOSKELETAL: No CVA tenderness. LOWER EXTREMITIES warm, well-perfused. No calf tenderness. No peripheral edema. NEUROLOGICAL: Cranial nerves II-XII grossly intact. Normal speech. Gait not observed PSYCHIATRIC: Cooperative. Good eye contact. Appropriate mood and affect. SKIN: Warm, dry, normal turgor, no rashes or lesions noted, normal capillary refill. Laboratory Results - last 24 hr 03/28/17 03/28/17 03/28/17 22:30 23:11 23:11 WBC 3.9 L RBC 3.45 L Hgb 12.0 Hct 35.2 L MCV 102.1 H MCH 34.7 H MCHC 34.0 RDW 15.6 Plt Count 188 MPV 9.8 Neutrophils % 44.2 Lymphocytes % 37.5 Monocytes % 15.6 H Eosinophils % 1.9 Basophils % 0.8 INR 1.11 Sodium Potassium Chloride Carbon Dioxide Anion Gap BUN Creatinine Creat Clearance w eGFR Random Glucose Calcium Magnesium Total Bilirubin AST ALT Alkaline Phosphatase Creatine Kinase Troponin I B-Natriuretic Peptide 483.07 H Total Protein Albumin 03/28/17 23:11 WBC RBC Hgb Hct MCV MCH MCHC RDW Plt Count MPV Neutrophils % Lymphocytes % Monocytes % Eosinophils % Basophils % INR Sodium 140 Potassium 3.9 Chloride 104 Carbon Dioxide 30 Anion Gap 6 L BUN 22 H D Creatinine 0.8 Creat Clearance w eGFR > 60 Random Glucose 94 Calcium 8.8 Magnesium 1.9 Total Bilirubin 0.3 D AST 21 ALT 28 D Alkaline Phosphatase 93 Creatine Kinase 57 Troponin I 0.02 B-Natriuretic Peptide Total Protein 6.9 Albumin 3.3 L ASSESSMENT/PLAN: 81M with multiple medical problems presents to the ED with a 2 day history of atypical chest pain. Atypical chest pain:Patient has a history of CAD. cardiac cath s/p stents Patient has a high heart score of 5. unlikely to be ACS given presentation, history, physical, labs, and EKG resume aspirin daily resume plavix daily resume statin BP control trend troponins cardiology consult telemetry monitoring echo morning labs lipid panel HbA1C Alcohol Abuse: Patient currently off CIPR protocol no signs/symptoms of intoxication or withdrawals at this time patient interested in continuing rehab and in alcoholics anonymous counselled on risks of alcohol abuse including the many ways it can directly and indirectly lead to HTN: trend BP q4h resume Metoprolol resume lisinopril room to increase both if needed HLD: resume statin lipid panel BPH: restart flomax depression: restart escitalopram 5mg po daily Hold zoloft and seroquel for now-does not seem like patient was on it at [facility]. will need to verify meds with pharmacy Asthma/COPD: patient unsure if he has an obstructive lung disease Bronchodilators PRN Glaucoma/Cataracts: restart timolol and Xalatan eye drops FEN: no IVF no electrolyte issues sodium controlled diet PPx: HSQ/SCDs No GI PPx indicated PT consult to avoid deconditioning-patient is high risk for deconditioning due to age and physical status (ambulates with a cane) Case discussed with attending Dr. Saucedo Visit type - Emergency Visit Emergency Visit: Yes ED Registration Date: 03/29/17 Care time: The patient presented to the Emergency Department on the above date and was hospitalized for further evaluation of their emergent condition. - New Patient This patient is new to me today: Yes Date on this admission: 03/29/17 - Critical Care Critical Care patient: No
--- NOTE | 2017-03-29 06:06 | PN ---
Teaching Attending Note Name of Resident: Ignacio Blair ATTENDING PHYSICIAN STATEMENT I saw and evaluated the patient. I reviewed the resident's note and discussed the case with the resident. I agree with the resident's findings and plan as documented. SUBJECTIVE: Patient presented c/o chest pain for 2 days after being in detox for alcoholism. Detox completed. OBJECTIVE: GEN: A&Ox3 NAD HEENT: EOMI, PERRLA, MMM CVS: RRR, no murmur gallops or rubs LUNGS; CTA ABd: Soft, BS+, NT, ND Exty: No edema, nl rom CBCD WBC 3.9 K/mm3 (4.0-10.0) L 03/28/17 23:11 RBC 3.45 M/mm3 (4.00-5.60) L 03/28/17 23:11 Hgb 12.0 GM/dL (11.7-16.9) 03/28/17 23:11 Hct 35.2 % (35.4-49) L 03/28/17 23:11 MCV 102.1 fl (80-96) H 03/28/17 23:11 MCHC 34.0 g/dl (32.0-35.9) 03/28/17 23:11 RDW 15.6 % (11.9-15.9) 03/28/17 23:11 Plt Count 188 K/MM3 (134-434) 03/28/17 23:11 MPV 9.8 fl (7.5-11.1) 03/28/17 23:11 CMP Sodium 140 mmol/L (136-145) 03/28/17 23:11 Potassium 3.9 mmol/L (3.5-5.1) 03/28/17 23:11 Chloride 104 mmol/L (98-107) 03/28/17 23:11 Carbon Dioxide 30 mmol/L (21-32) 03/28/17 23:11 Anion Gap 6 (8-16) L 03/28/17 23:11 BUN 22 mg/dL (7-18) H D 03/28/17 23:11 Creatinine 0.8 mg/dL (0.7-1.3) 03/28/17 23:11 Creat Clearance w eGFR > 60 (>60) 03/28/17 23:11 Random Glucose 94 mg/dL (74-106) 03/28/17 23:11 Calcium 8.8 mg/dL (8.5-10.1) 03/28/17 23:11 Total Bilirubin 0.3 mg/dL (0.2-1.0) D 03/28/17 23:11 AST 21 U/L (15-37) 03/28/17 23:11 ALT 28 U/L (12-78) D 03/28/17 23:11 Alkaline Phosphatase 93 U/L (45-117) 03/28/17 23:11 Total Protein 6.9 g/dl (6.4-8.2) 03/28/17 23:11 Albumin 3.3 g/dl (3.4-5.0) L 03/28/17 23:11 CARDIAC ENZYMES Creatine Kinase 57 IU/L (39-308) 03/28/17 23:11 Troponin I 0.02 ng/ml (0.00-0.05) 03/28/17 23:11 ASSESSMENT AND PLAN: Chest pain r/o ACS case d/w resident and plans as documented. trend troponins. ASA continue home medications ECHO and stress test. Cardiology consult MV, thiamine and folate
[2017-03-29] MEDS ORDERED: LISINOPRIL 5 MG TABLET (FP) ONE (06:44)
[2017-03-29] MEDS: LISINOPRIL 10 MG TABLET (FP) PO SCH (06:51)
[2017-03-29 07:10] LABS: MCH 34.3 pg (25.7-33.7); MCHC 33.3 g/dl (32.0-35.9); MEAN CELL VOLUME 102.9 fl (80-96); MEAN PLT VOLUME 10.4 fl (7.5-11.1); PLATELET COUNT 188 K/MM3 (134-434); RDW 15.4 % (11.9-15.9); WHITE BLOOD COUNT 4.8 K/mm3 (4.0-10.0)
[2017-03-29 07:35] LABS: ANION GAP 5 (8-16); CALCIUM 9.4 mg/dL (8.5-10.1); CHOLESTEROL 76 mg/dL (50-200); CO2 33 mmol/L (21-32); CREATININE 0.8 mg/dL (0.7-1.3); GLUCOSE,RANDOM 90 mg/dL (74-106); PHOSPHOROUS 3.1 mg/dL (2.5-4.9)
[2017-03-29 07:38] LABS: CPK 59 IU/L (39-308); TROPONIN I 0.03 ng/ml (0.00-0.05)
--- NOTE | 2017-03-29 09:19 | HOSP ---
Subjective - Review of Symptoms Events since last encounter: Patient has no further chest pain. has a recent stent ( 6months ago) Vital Signs Temperature 97.6 F 03/29/17 08:30 Pulse Rate 57 L 03/29/17 08:30 Respiratory Rate 16 03/29/17 08:30 Blood Pressure 157/71 03/29/17 08:30 O2 Sat by Pulse Oximetry (%) 100 03/29/17 08:30 GENERAL: Awake, alert, and fully oriented to person place and time. No acute distress. EYES: Pupils equal, round and reactive to light, extraocular movements intact EARS, NOSE, THROAT: Moist mucous membranes. NECK: supple, No JVD LUNGS: Breath sounds equal, clear to auscultation bilaterally. No wheezes, and no crackles. No accessory muscle use. HEART: Regular rate and rhythm, normal S1 and S2 without murmur ABDOMEN: Soft, nontender, not distended, normoactive bowel sounds, no guarding, no rebound MUSCULOSKELETAL: No CVA tenderness. EXTREMITIES warm, well-perfused. No calf tenderness. No peripheral edema. NEUROLOGICAL: Cranial nerves II-XII grossly intact. Normal speech. Gait not observed PSYCHIATRIC: Cooperative. Good eye contact. Appropriate mood and affect. SKIN: Warm, dry, normal turgor, no rashes or lesions noted, normal capillary refill. CBCD WBC 4.8 K/mm3 (4.0-10.0) 03/29/17 06:00 RBC 3.87 M/mm3 (4.00-5.60) L 03/29/17 06:00 Hgb 13.3 GM/dL (11.7-16.9) D 03/29/17 06:00 Hct 39.8 % (35.4-49) 03/29/17 06:00 MCV 102.9 fl (80-96) H 03/29/17 06:00 MCHC 33.3 g/dl (32.0-35.9) 03/29/17 06:00 RDW 15.4 % (11.9-15.9) 03/29/17 06:00 Plt Count 188 K/MM3 (134-434) 03/29/17 06:00 MPV 10.4 fl (7.5-11.1) 03/29/17 06:00 CMP Sodium 144 mmol/L (136-145) 03/29/17 06:00 Potassium 4.7 mmol/L (3.5-5.1) D 03/29/17 06:00 Chloride 106 mmol/L (98-107) 03/29/17 06:00 Carbon Dioxide 33 mmol/L (21-32) H 03/29/17 06:00 Anion Gap 5 (8-16) L 03/29/17 06:00 BUN 16 mg/dL (7-18) D 03/29/17 06:00 Creatinine 0.8 mg/dL (0.7-1.3) 03/29/17 06:00 Creat Clearance w eGFR > 60 (>60) 03/28/17 23:11 Random Glucose 90 mg/dL (74-106) 03/29/17 06:00 Calcium 9.4 mg/dL (8.5-10.1) 03/29/17 06:00 Total Bilirubin 0.3 mg/dL (0.2-1.0) D 03/28/17 23:11 AST 21 U/L (15-37) 03/28/17 23:11 ALT 28 U/L (12-78) D 03/28/17 23:11 Alkaline Phosphatase 93 U/L (45-117) 03/28/17 23:11 Total Protein 6.9 g/dl (6.4-8.2) 03/28/17 23:11 Albumin 3.3 g/dl (3.4-5.0) L 03/28/17 23:11 CARDIAC ENZYMES Creatine Kinase 59 IU/L (39-308) 03/29/17 06:00 Troponin I 0.03 ng/ml (0.00-0.05) D 03/29/17 06:00 Current Medications Generic Name Dose Route Start Last Admin Trade Name Freq PRN Reason Stop Dose Admin Aspirin 81 mg 03/29/17 10:00 Asa - PO DAILY [facility] Atorvastatin Calcium 80 mg 03/29/17 22:00 Lipitor - PO HS ZOYA Clopidogrel Bisulfate 75 mg 03/29/17 10:00 Plavix - PO DAILY [facility] Escitalopram Oxalate 5 mg 03/29/17 10:00 Lexapro - PO DAILY [facility] Folic Acid 1 mg 03/29/17 10:00 Folic Acid - PO DAILY [facility] Heparin Sodium (Porcine) 5,000 unit 03/29/17 10:00 Heparin - SQ Q8H-IV ZOYA Latanoprost 1 drop 03/29/17 22:00 Xalatan 0.005% Eye Drops - OU HS [facility] Lisinopril 10 mg 03/29/17 06:00 03/29/17 06:51 Prinivil PO 10 mg DAILY@0600 [facility] Administration Metoprolol Succinate 50 mg 03/29/17 10:00 Toprol Xl - PO DAILY [facility] Tamsulosin HCl 0.4 mg 03/29/17 08:30 Flomax - PO DAILY@0830 [facility] Thiamine HCl 100 mg 03/29/17 10:00 Vitamin B1 - PO DAILY [facility] Timolol Maleate 1 drop 03/29/17 10:00 Timoptic 0.5% OU DAILY [facility] Home Medications Medication Instructions Recorded Nitroglycerin Sublingual 0.4 mg SL ONCE 03/18/17 [Nitrostat -] Quetiapine Fumarate [Seroquel -] 25 mg PO BID 03/18/17 Sertraline HCl [Zoloft -] 25 mg PO DAILY 03/18/17 Aspirin [ASA -] 81 mg PO DAILY #30 tab 03/28/17 Atorvastatin Ca [Lipitor] 80 mg PO HS #30 tab 03/28/17 Clopidogrel Bisulfate [Plavix -] 75 mg PO DAILY #30 tab 03/28/17 Fluticasone Propionate [Flovent 50 mcg IH BID #1 inh 03/28/17 Diskus] Latanoprost 0.005% Eye Drops 1 drop AD HS #1 bottle 03/28/17 [Xalatan 0.005% Eye Drops -] Lisinopril [Prinivil] 10 mg PO DAILY@0600 #30 tablet 03/28/17 Metoprolol Succinate [Toprol XL -] 50 mg PO DAILY #30 tab 03/28/17 Tamsulosin HCl [Flomax -] 0.4 mg PO DAILY #30 cap 03/28/17 Timolol 0.5% [Timoptic 0.5%] 1 drop OU DAILY #1 bottle 03/28/17 Laboratory Tests 03/28/17 03/28/17 03/29/17 22:30 23:11 06:00 Troponin I 0.02 0.03 D B-Natriuretic Peptide 483.07 H A/P: Patient is a 81M with multiple medical problems presents to the ED with a 2 day history of chest pain. # Acute Chest pain syndrome with recent pci with stent on Aspirin and plavix presents with chest with no radiation to the back or neck area. With a high heart score of 5. Continue plavix/aspirin daily, hold statin, Continue ASA indefinitely and Plavix for 1 year. Echo and stress test as per discussion with the storeroom clerk. 2 sets of troponins are negative , 3rd trop.pending Stop Atorvastatin for now - then restart at a lower dose to keep LDL 65-70, Patient's LDL is in 30s. As per cardiology: Once ruled out with negative enzymes, consider nuclear stress testing and transthoracic echocardiography to assess LV/RV and valvular function before transferring back to alcohol rehab # Hx of HTN continue meds. Continue BB, Steven-I # Hx of ETOH dependence now enrolled in rehab # Hx of HLD; hold it for now since LDL is in 30's # BPH: restart flomax # depression: restart escitalopram 5mg po daily #Asthma/COPD: Bronchodilators PRN #Glaucoma/Cataracts: on timolol and Xalatan eye drops DVT PX; hep.sq PT to avoid deconditioning Physical Examination Vital Signs: Vital Signs Temperature 97.6 F 03/29/17 08:30 Pulse Rate 57 L 03/29/17 08:30 Respiratory Rate 16 03/29/17 08:30 Blood Pressure 157/71 03/29/17 08:30 O2 Sat by Pulse Oximetry (%) 100 03/29/17 08:30 Labs: CBC, BMP 03/29/17 06:00 03/29/17 06:00
[2017-03-29] MEDS: THIAMINE HCL 100 MG TABLET (FP) PO SCH (09:34)
[2017-03-29] MEDS: CLOPIDOGREL BISULFATE 75 MG TABLET (FP) PO SCH (09:34)
[2017-03-29] MEDS: TIMOLOL 0.5% OPHTHALMIC SOL 5 ML BOTTLE OU SCH (09:34)
[2017-03-29] MEDS: ASPIRIN 81 MG CHEWABLE TABLETS PO SCH (09:34)
[2017-03-29] MEDS: TAMSULOSIN HCL 0.4 MG CAP.ER.24H (FP) PO SCH (09:34)
[2017-03-29] MEDS: ESCITALOPRAM OXALATE 10 MG TABLET (FP) PO SCH (09:34)
[2017-03-29] MEDS: FOLIC ACID 1 MG TABLET (FP) PO SCH (09:34)
[2017-03-29] MEDS: METOPROLOL SUCCINATE 50 MG TAB.SR.24H (FP) PO SCH (09:34)
[2017-03-29] MEDS ORDERED: HEPARIN NA (PORCINE) 5,000 UNITS/ML 1ML VIAL SQ SCH (10:00)
--- NOTE | 2017-03-29 11:35 | EKG ---
Test Reason : Blood Pressure : / mmHG Vent. Rate : 055 BPM Atrial Rate : 055 BPM P-R Int : 190 ms QRS Dur : 088 ms QT Int : 444 ms P-R-T Axes : 033 040 066 degrees QTc Int : 424 ms SINUS BRADYCARDIA INTRAATRIAL CONDUCTION DELAY WHEN COMPARED WITH ECG OF 27-MAR-2017 14:52, NO SIGNIFICANT CHANGE WAS FOUND CLINICAL CORRELATION IS RECOMMENDED Confirmed by JHONATAN MOHR MD ([id number] on 03/29/2017 11:34:59 AM Referred By: Confirmed By:JHONATAN MOHR MD
--- NOTE | 2017-03-29 12:07 | CON.CARD ---
Consult Consult Specialty:: Cardiology Referred by:: Hospitalist Reason for Consultation:: Cardiac evaluation - History of Present Illness Chief Complaint: Chest pain History of Present Illness: Patient is an 81 year old male who resides in an assisted living facility in [place], now at alcohol rehab in [facility], now transferred for evaluation of chest pain. His PMH includes coronary artery disease S/P PCI/ stent at [facility] in August. His other history includes hypertension, but denies diabetes mellitus or hypercholesterolemia. He complained of left sided chest tightness without radiation to shoulder, arm or jaw. He denies shortness of breath or palpitations. He denies paroxysmal nocturnal dyspnea or orthopnea. He denies fever or chills. He denies headache or lightheadedness. Cardiology consultation was called for further evaluation. - History Source History Provided By: Patient, Medical Record Limitations to Obtaining History: No Limitations - Past Medical History Cardio/Vascular: Yes: CAD, HTN Endocrine: No: Diabetes Mellitus - Past Surgical History Past Surgical History: Yes: Cataract Removal Additional Surgical History: Cardiac catheterization and stent - Alcohol/Substance Use Hx Alcohol Use: Yes - Smoking History Smoking history: Former smoker Have you smoked in the past 12 months: Yes Aproximately how many cigarettes per day: 10 Home Medications - Allergies Allergies/Adverse Reactions: Allergies Allergy/AdvReac Type Severity Reaction Status Date / Time No Known Allergies Allergy Verified 03/18/17 17:45 - Home Medications Home Medications: Ambulatory Orders Nitroglycerin Sublingual [Nitrostat -] 0.4 mg SL ONCE 03/18/17 Quetiapine Fumarate [Seroquel -] 25 mg PO BID 03/18/17 Sertraline HCl [Zoloft -] 25 mg PO DAILY 03/18/17 Aspirin [ASA -] 81 mg PO DAILY #30 tab 03/28/17 Atorvastatin Ca [Lipitor] 80 mg PO HS #30 tab 03/28/17 Clopidogrel Bisulfate [Plavix -] 75 mg PO DAILY #30 tab 03/28/17 Fluticasone Propionate [Flovent Diskus] 50 mcg IH BID #1 inh 03/28/17 Latanoprost 0.005% Eye Drops [Xalatan 0.005% Eye Drops -] 1 drop AD HS #1 bottle 03/28/17 Lisinopril [Prinivil] 10 mg PO DAILY@0600 #30 tablet 03/28/17 Metoprolol Succinate [Toprol XL -] 50 mg PO DAILY #30 tab 03/28/17 Tamsulosin HCl [Flomax -] 0.4 mg PO DAILY #30 cap 03/28/17 Timolol 0.5% [Timoptic 0.5%] 1 drop OU DAILY #1 bottle 03/28/17 Family Disease History - Family Disease History Family Disease History: Heart Disease: Brother (), [place]: Mother () , Other: Father (), Mother, Brother, Sister () Review of Systems - Review of Systems Constitutional: denies: Chills, Fever Cardiovascular: reports: Chest Pain. denies: Palpitations, Shortness of Breath Respiratory: denies: Cough, Hemoptysis, Orthopnea, PND, SOB, SOB on Exertion Gastrointestinal: denies: Abdominal Pain, Constipation, Diarrhea, Melena, Nausea , Rectal Bleeding, Vomiting Neurological: denies: Dizziness, Headache, Seizure, Syncope Vital Signs: Vital Signs Temperature 97.6 F 03/29/17 09:30 Pulse Rate 67 03/29/17 09:30 Respiratory Rate 18 03/29/17 09:30 Blood Pressure 122/95 03/29/17 09:30 O2 Sat by Pulse Oximetry (%) 100 03/29/17 09:30 Neck: Yes: Supple Respiratory: Yes: CTA Bilaterally Gastrointestinal: Yes: Normal Bowel Sounds, Soft. No: Tenderness Cardiovascular: Yes: Regular Rate and Rhythm JVD: No Carotid Bruit: No PMI: Non-Displaced Heart Sounds: Yes: S1, S2. No: Gallop Murmur: No: Systolic Murmur Edema: No - Other Data Labs, Other Data: CBC, BMP 03/29/17 06:00 03/29/17 06:00 INR, PTT INR 1.11 (0.82-1.09) 03/28/17 23:11 Troponin, BNP 03/29/17 06:00 Troponin I 0.03 D Laboratory Results - last 24 hr 03/28/17 03/28/17 03/28/17 22:30 23:11 23:11 WBC 3.9 L RBC 3.45 L Hgb 12.0 Hct 35.2 L MCV 102.1 H MCH 34.7 H MCHC 34.0 RDW 15.6 Plt Count 188 MPV 9.8 Neutrophils % 44.2 Lymphocytes % 37.5 Monocytes % 15.6 H Eosinophils % 1.9 Basophils % 0.8 INR 1.11 Sodium Potassium Chloride Carbon Dioxide Anion Gap BUN Creatinine Creat Clearance w eGFR Random Glucose Hemoglobin A1c % Calcium Phosphorus Magnesium Total Bilirubin AST ALT Alkaline Phosphatase Creatine Kinase Troponin I B-Natriuretic Peptide 483.07 H Total Protein Albumin Triglycerides Cholesterol Total LDL Cholesterol HDL Cholesterol 03/28/17 03/29/17 03/29/17 23:11 06:00 06:00 WBC 4.8 RBC 3.87 L Hgb 13.3 D Hct 39.8 MCV 102.9 H MCH 34.3 H MCHC 33.3 RDW 15.4 Plt Count 188 MPV 10.4 Neutrophils % Lymphocytes % Monocytes % Eosinophils % Basophils % INR Sodium 140 144 Potassium 3.9 4.7 D Chloride 104 106 Carbon Dioxide 30 33 H Anion Gap 6 L 5 L BUN 22 H D 16 D Creatinine 0.8 0.8 Creat Clearance w eGFR > 60 Random Glucose 94 90 Hemoglobin A1c % Calcium 8.8 9.4 Phosphorus 3.1 Magnesium 1.9 2.0 Total Bilirubin 0.3 D AST 21 ALT 28 D Alkaline Phosphatase 93 Creatine Kinase 57 59 Troponin I 0.02 0.03 D B-Natriuretic Peptide Total Protein 6.9 Albumin 3.3 L Triglycerides 29 L Cholesterol 76 Total LDL Cholesterol 25 HDL Cholesterol 53 Sin[address] rhythm with no ST-T abnormality Imaging - Results Chest X-ray: Report Reviewed (Unremarkable) EKG: Report Reviewed Problem List - Problems (1) Chest pain Code(s): R07.9 - CHEST PAIN, UNSPECIFIED Qualifiers: Chest pain type: unspecified Qualified Code(s): R07.9 - Chest pain, unspecified (2) Alcohol dependence Code(s): F10.20 - ALCOHOL DEPENDENCE, UNCOMPLICATED (3) Hyperlipidemia Code(s): E78.5 - HYPERLIPIDEMIA, UNSPECIFIED Qualifiers: Hyperlipidemia type: pure hypercholesterolemia Qualified Code(s): E78.00 - Pure hypercholesterolemia, unspecified; E78.0 - Pure hypercholesterolemia (4) Hypertension Code(s): I10 - ESSENTIAL (PRIMARY) HYPERTENSION Qualifiers: Hypertension type: essential hypertension Qualified Code(s): I10 - Essential (primary) hypertension (5) CAD (coronary artery disease) Code(s): I25.10 - ATHSCL HEART DISEASE OF [place] CORONARY ARTERY W/O ANG PCTRS (6) History of percutaneous coronary intervention Code(s): Z98.890 - OTHER SPECIFIED POSTPROCEDURAL STATES Assessment/Plan 1. Chest pain syndrome with underlying coronary artery disease S/P PCI/stent 6 months ago 2. Hypertension 3. ETOH dependence now enrolled in rehab PLAN: 1. trend troponin - so far negative 2 sets 2. Continue Metoprolol and Lisinopril 3. Stop Atorvastatin for now - then restart at a lower dose to keep LDL 65-70 4. Continue ASA indefinitely and Plavix for 1 year 5. Once ruled out with negative enzymes, consider nuclear stress testing and transthoracic echocardiography to assess LV/RV and valvular function before transferring back to alcohol rehab Further plans are to follow Burt Macias MD
[2017-03-29 13:56] LABS: TROPONIN I 0.02 ng/ml (0.00-0.05)
[2017-03-29] MEDS: HEPARIN NA (PORCINE) 5,000 UNITS/ML 1ML VIAL SQ SCH (21:19)
[2017-03-29] MEDS: LATANOPROST 0.005% OPHTH SOLN 2.5ML BOTTLE OU SCH (21:20)
[2017-03-29] MEDS: MOMETASONE FUROATE 220 MCG/IH INHALER IH SCH (21:20)
[2017-03-29] MEDS ORDERED: ATORVASTATIN CA 80 MG TABLET (FP) PO SCH (22:00)
[2017-03-30] MEDS ORDERED: ZOLPIDEM TARTRATE 5 MG TABLET PO ONE ×3 (00:18→21:38)
[2017-03-30] MEDS: LISINOPRIL 10 MG TABLET (FP) PO SCH (06:37)
[2017-03-30] MEDS: TAMSULOSIN HCL 0.4 MG CAP.ER.24H (FP) PO SCH (08:29)
--- NOTE | 2017-03-30 09:24 | PN ---
Physical Exam: SUBJECTIVE: Patient seen and examined. No acute events over night. Offers no new complaints. OBJECTIVE: Vital Signs Period Temp Pulse Resp BP Sys/Chou Pulse Ox Last 24 Hr 97.6 F-98.8 F 55-67 16-20 122-163/70-95 100-100 GENERAL: The patient is awake, alert, and fully oriented, in no acute distress. HEAD: Normal with no signs of trauma. EYES: PERRL, extraocular movements intact, sclera anicteric, conjunctiva clear. No ptosis. ENT: oropharynx clear without exudates, moist mucous membranes. NECK: supple. LUNGS: Breath sounds equal, clear to auscultation bilaterally, no wheezes, no crackles, no accessory muscle use. HEART: Regular rate and rhythm, S1, S2 without murmur, rub or gallop. ABDOMEN: Soft, nontender, nondistended, normoactive bowel sounds, no guarding, no rebound, no hepatosplenomegaly, no masses. EXTREMITIES: 2+ pulses, warm, well-perfused, no edema. PSYCH: Normal mood, normal affect. SKIN: Warm, dry, normal turgor, no rashes or lesions noted Laboratory Results - last 24 hr 03/29/17 13:18 Creatine Kinase 79 Troponin I 0.02 D Active Medications Generic Name Dose Route Start Last Admin Trade Name Juanito PRN Reason Stop Dose Admin Aspirin 81 mg 03/29/17 10:00 03/29/17 09:34 Asa - PO 81 mg DAILY ZOYA Administration Clopidogrel Bisulfate 75 mg 03/29/17 10:00 03/29/17 09:34 Plavix - PO 75 mg DAILY [facility]OYA Administration Escitalopram Oxalate 5 mg 03/29/17 10:00 03/29/17 09:34 Lexapro - PO 5 mg DAILY ZOYA Administration Folic Acid 1 mg 03/29/17 10:00 03/29/17 09:34 Folic Acid - PO 1 mg DAILY [facility]OYA Administration Heparin Sodium (Porcine) 5,000 unit 03/29/17 22:00 03/29/17 21:19 Heparin - SQ 5,000 unit BID ZOYA Administration Latanoprost 1 drop 03/29/17 22:00 03/29/17 21:20 Xalatan 0.005% Eye Drops - OU Not Given HS ZOYA Lisinopril 10 mg 03/29/17 06:00 03/30/17 06:37 Prinivil PO 10 mg DAILY@0600 [facility]A Administration Metoprolol Succinate 50 mg 03/29/17 10:00 03/29/17 09:34 Toprol Xl - PO 50 mg DAILY [facility]OYA Administration Mometasone Furoate 1 puff 03/29/17 22:00 03/29/17 21:20 Asmanex 220mcg - IH Not Given HS ZOYA Pneumococcal 13-Valent Conj Vacc 0.5 ml 03/29/17 17:32 Prevnar 13 Syringe - IM 03/29/17 17:33 .ONCE ONE Tamsulosin HCl 0.4 mg 03/29/17 08:30 03/30/17 08:29 Flomax - PO 0.4 mg DAILY@0830 ZOYA Administration Thiamine HCl 100 mg 03/29/17 10:00 03/29/17 09:34 Vitamin B1 - PO 100 mg DAILY [facility]A Administration Timolol Maleate 1 drop 03/29/17 10:00 03/29/17 09:34 Timoptic 0.5% OU Not Given DAILY ZOYA ASSESSMENT/PLAN: Patient is a 81M with multiple medical problems presents to the ED with a 2 day history of chest pain. #Acute chest pain syndrome: - s/p PCI with stent on Aspirin/Plavix -Continue plavix 75mgm for at least 1 year -Continue Aspirin -BP control -Stop atorvastatin, restart at a lower dose to keep LDL between 65-70 -TTE and nuclear stress test as per discussion once cardiac enzymes are negative before transferring back to alcohol rehab as per floor representative -Trend troponins #Alcohol Abuse: -enrolled in rehab -no signs/symptoms of intoxication or withdrawals at this time -counselled on risks of alcohol abuse including the many ways it can directly and indirectly lead to #Nictotine Dependence -Nicoderm 14mg #HTN: -resume Metoprolol -resume lisinopril #HLD: -Stop atorvastatin #BPH: -restart flomax #Depression: - restart escitalopram 5mg #Asthma/COPD: Bronchodilators PRN #Glaucoma/Cataracts: - Timolol and Xalatan eye drops DVT PX: hep.sq Visit type - Emergency Visit Emergency Visit: Yes ED Registration Date: 03/29/17 Care time: The patient presented to the Emergency Department on the above date and was hospitalized for further evaluation of their emergent condition. - New Patient This patient is new to me today: No - Critical Care Critical Care patient: No
[2017-03-30] MEDS: CLOPIDOGREL BISULFATE 75 MG TABLET (FP) PO SCH (09:31)
[2017-03-30] MEDS: METOPROLOL SUCCINATE 50 MG TAB.SR.24H (FP) PO SCH (09:31)
[2017-03-30] MEDS: THIAMINE HCL 100 MG TABLET (FP) PO SCH (09:31)
[2017-03-30] MEDS: HEPARIN NA (PORCINE) 5,000 UNITS/ML 1ML VIAL SQ SCH ×2 (09:31→21:49)
[2017-03-30] MEDS: FOLIC ACID 1 MG TABLET (FP) PO SCH (09:31)
[2017-03-30] MEDS: ASPIRIN 81 MG CHEWABLE TABLETS PO SCH (09:32)
[2017-03-30] MEDS: TIMOLOL 0.5% OPHTHALMIC SOL 5 ML BOTTLE OU SCH (09:32)
[2017-03-30] MEDS: ESCITALOPRAM OXALATE 10 MG TABLET (FP) PO SCH (09:32)
--- NOTE | 2017-03-30 10:30 | PN ---
Progress Note, Physician Chief Complaint: Not in distress this am History of Present Illness: Patient was seen and examined. Awake and alert. Chart was reviewed Denies chest pain, SOB or palpitations - Current Medication List Current Medications: Active Medications Aspirin (Asa -) 81 mg PO DAILY [facility] Last Admin: 03/30/17 09:32 Dose: 81 mg Clopidogrel Bisulfate (Plavix -) 75 mg PO DAILY [facility] Last Admin: 03/30/17 09:31 Dose: 75 mg Escitalopram Oxalate (Lexapro -) 5 mg PO DAILY [facility] Last Admin: 03/30/17 09:32 Dose: 5 mg Folic Acid (Folic Acid -) 1 mg PO DAILY [facility] Last Admin: 03/30/17 09:31 Dose: 1 mg Heparin Sodium (Porcine) (Heparin -) 5,000 unit SQ BID [facility] Last Admin: 03/30/17 09:31 Dose: 5,000 unit Latanoprost (Xalatan 0.005% Eye Drops -) 1 drop OU HS [facility] Last Admin: 03/29/17 21:20 Dose: Not Given Lisinopril (Prinivil) 10 mg PO DAILY@0600 [facility] Last Admin: 03/30/17 06:37 Dose: 10 mg Metoprolol Succinate (Toprol Xl -) 50 mg PO DAILY [facility] Last Admin: 03/30/17 09:31 Dose: 50 mg Mometasone Furoate (Asmanex 220mcg -) 1 puff IH HS [facility] Last Admin: 03/29/17 21:20 Dose: Not Given Pneumococcal 13-Valent Conj Vacc (Prevnar 13 Syringe -) 0.5 ml IM .ONCE ONE Stop: 03/29/17 17:33 Tamsulosin HCl (Flomax -) 0.4 mg PO DAILY@0830 [facility] Last Admin: 03/30/17 08:29 Dose: 0.4 mg Thiamine HCl (Vitamin B1 -) 100 mg PO DAILY [facility] Last Admin: 03/30/17 09:31 Dose: 100 mg Timolol Maleate (Timoptic 0.5%) 1 drop OU DAILY [facility] Last Admin: 03/30/17 09:32 Dose: 1 drop - Objective Vital Signs: Vital Signs Temperature 98 F 03/30/17 10:00 Pulse Rate 56 L 03/30/17 10:00 Respiratory Rate 18 03/30/17 10:00 Blood Pressure 154/76 03/30/17 10:00 O2 Sat by Pulse Oximetry (%) 100 03/29/17 21:00 Neck: Yes: Supple Cardiovascular: Yes: Regular Rate and Rhythm, S1, S2 Respiratory: Yes: CTA Bilaterally Gastrointestinal: Yes: Normal Bowel Sounds, Soft. No: Tenderness Edema: No Additional Findings/Remarks: - Review of Systems Constitutional: denies: Chills, Fever Cardiovascular: reports: Chest Pain. denies: Palpitations, Shortness of Breath Respiratory: denies: Cough, Hemoptysis, Orthopnea, PND, SOB, SOB on Exertion Gastrointestinal: denies: Abdominal Pain, Constipation, Diarrhea, Melena, Nausea , Rectal Bleeding, Vomiting Neurological: denies: Dizziness, Headache, Seizure, Syncope Labs: CBC, BMP 03/29/17 06:00 03/29/17 06:00 INR, PTT INR 1.11 (0.82-1.09) 03/28/17 23:11 Laboratory Results - last 24 hr 03/29/17 13:18 Creatine Kinase 79 Troponin I 0.02 D Problem List - Problems (1) Chest pain Code(s): R07.9 - CHEST PAIN, UNSPECIFIED Qualifiers: Chest pain type: unspecified Qualified Code(s): R07.9 - Chest pain, unspecified (2) Alcohol dependence Code(s): F10.20 - ALCOHOL DEPENDENCE, UNCOMPLICATED (3) Hyperlipidemia Code(s): E78.5 - HYPERLIPIDEMIA, UNSPECIFIED Qualifiers: Hyperlipidemia type: pure hypercholesterolemia Qualified Code(s): E78.00 - Pure hypercholesterolemia, unspecified; E78.0 - Pure hypercholesterolemia (4) Hypertension Code(s): I10 - ESSENTIAL (PRIMARY) HYPERTENSION Qualifiers: Hypertension type: essential hypertension Qualified Code(s): I10 - Essential (primary) hypertension (5) CAD (coronary artery disease) Code(s): I25.10 - ATHSCL HEART DISEASE OF [place] CORONARY ARTERY W/O ANG PCTRS (6) History of percutaneous coronary intervention Code(s): Z98.890 - OTHER SPECIFIED POSTPROCEDURAL STATES Assessment/Plan 1. Chest pain syndrome with underlying coronary artery disease S/P PCI/stent 6 months ago, angina pectoris 2. Hypertension 3. ETOH dependence now enrolled in rehab PLAN: 1. Trend troponin - so far negative 2. Continue Metoprolol and Lisinopril (uptitrate) 3. Stop Atorvastatin for now - then restart at a lower dose to keep LDL 65-70 4. Continue ASA indefinitely and Plavix for 1 year 5. Once ruled out with negative enzymes, consider nuclear stress testing and transthoracic echocardiography to assess LV/RV and valvular function before transferring back to alcohol rehab Further plans are to follow Burt Macias MD
[2017-03-30] MEDS ORDERED: PNEUMOC 13-VAL CONJ-DIP CRM/PF 0.5 ML DISP.SYRIN IM ONE (12:30)
[2017-03-30] MEDS ORDERED: SODIUM CHLORIDE NASAL SPRAY 44 ML BOTTLE NS PRN (13:50)
--- NOTE | 2017-03-30 14:04 | PN ---
Teaching Attending Note Name of Resident: Blue Medina ATTENDING PHYSICIAN STATEMENT I saw and evaluated the patient. I reviewed the resident's note and discussed the case with the resident. I agree with the resident's findings and plan as documented. SUBJECTIVE: Patient has no further chest pain, no shortness of breath, no nausea or vomiting. OBJECTIVE: Vital Signs Temperature 98 F 03/30/17 10:00 Pulse Rate 56 L 03/30/17 10:00 Respiratory Rate 18 03/30/17 10:00 Blood Pressure 154/76 03/30/17 10:00 O2 Sat by Pulse Oximetry (%) 100 03/29/17 21:00 CBCD WBC 4.8 K/mm3 (4.0-10.0) 03/29/17 06:00 RBC 3.87 M/mm3 (4.00-5.60) L 03/29/17 06:00 Hgb 13.3 GM/dL (11.7-16.9) D 03/29/17 06:00 Hct 39.8 % (35.4-49) 03/29/17 06:00 MCV 102.9 fl (80-96) H 03/29/17 06:00 MCHC 33.3 g/dl (32.0-35.9) 03/29/17 06:00 RDW 15.4 % (11.9-15.9) 03/29/17 06:00 Plt Count 188 K/MM3 (134-434) 03/29/17 06:00 MPV 10.4 fl (7.5-11.1) 03/29/17 06:00 CMP Sodium 144 mmol/L (136-145) 03/29/17 06:00 Potassium 4.7 mmol/L (3.5-5.1) D 03/29/17 06:00 Chloride 106 mmol/L (98-107) 03/29/17 06:00 Carbon Dioxide 33 mmol/L (21-32) H 03/29/17 06:00 Anion Gap 5 (8-16) L 03/29/17 06:00 BUN 16 mg/dL (7-18) D 03/29/17 06:00 Creatinine 0.8 mg/dL (0.7-1.3) 03/29/17 06:00 Creat Clearance w eGFR > 60 (>60) 03/28/17 23:11 Random Glucose 90 mg/dL (74-106) 03/29/17 06:00 Calcium 9.4 mg/dL (8.5-10.1) 03/29/17 06:00 Total Bilirubin 0.3 mg/dL (0.2-1.0) D 03/28/17 23:11 AST 21 U/L (15-37) 03/28/17 23:11 ALT 28 U/L (12-78) D 03/28/17 23:11 Alkaline Phosphatase 93 U/L (45-117) 03/28/17 23:11 Total Protein 6.9 g/dl (6.4-8.2) 03/28/17 23:11 Albumin 3.3 g/dl (3.4-5.0) L 03/28/17 23:11 CARDIAC ENZYMES Creatine Kinase 79 IU/L (39-308) 03/29/17 13:18 Troponin I 0.02 ng/ml (0.00-0.05) D 03/29/17 13:18 Current Medications Generic Name Dose Route Start Last Admin Trade Name Franklynq PRN Reason Stop Dose Admin Aspirin 81 mg 03/29/17 10:00 03/30/17 09:32 Asa - PO 81 mg DAILY [facility] Administration Clopidogrel Bisulfate 75 mg 03/29/17 10:00 03/30/17 09:31 Plavix - PO 75 mg DAILY [facility] Administration Escitalopram Oxalate 5 mg 03/29/17 10:00 03/30/17 09:32 Lexapro - PO 5 mg DAILY [facility]A Administration Folic Acid 1 mg 03/29/17 10:00 03/30/17 09:31 Folic Acid - PO 1 mg DAILY [facility] Administration Heparin Sodium (Porcine) 5,000 unit 03/29/17 22:00 03/30/17 09:31 Heparin - SQ 5,000 unit BID [facility] Administration Latanoprost 1 drop 03/29/17 22:00 03/29/17 21:20 Xalatan 0.005% Eye Drops - OU Not Given HS [facility] Lisinopril 10 mg 03/29/17 06:00 03/30/17 06:37 Prinivil PO 10 mg DAILY@0600 [facility] Administration Metoprolol Succinate 50 mg 03/29/17 10:00 03/30/17 09:31 Toprol Xl - PO 50 mg DAILY [facility] Administration Mometasone Furoate 1 puff 03/29/17 22:00 03/29/17 21:20 Asmanex 220mcg - IH Not Given HS [facility] Nicotine 14 mg 03/30/17 14:00 Nicoderm Patch - TD DAILY [facility] Sodium Chloride 2 spray 03/30/17 13:50 [place] Nasal [place] - NS TID PRN NASAL CONGESTION Tamsulosin HCl 0.4 mg 03/29/17 08:30 03/30/17 08:29 Flomax - PO 0.4 mg DAILY@0830 [facility] Administration Thiamine HCl 100 mg 03/29/17 10:00 03/30/17 09:31 Vitamin B1 - PO 100 mg DAILY [facility] Administration Timolol Maleate 1 drop 03/29/17 10:00 03/30/17 09:32 Timoptic 0.5% OU 1 drop DAILY [facility] Administration Home Medications Medication Instructions Recorded Nitroglycerin Sublingual 0.4 mg SL ONCE 03/18/17 [Nitrostat -] Quetiapine Fumarate [Seroquel -] 25 mg PO BID 03/18/17 Sertraline HCl [Zoloft -] 25 mg PO DAILY 03/18/17 Aspirin [ASA -] 81 mg PO DAILY #30 tab 03/28/17 Atorvastatin Ca [Lipitor] 80 mg PO HS #30 tab 03/28/17 Clopidogrel Bisulfate [Plavix -] 75 mg PO DAILY #30 tab 03/28/17 Fluticasone Propionate [Flovent 50 mcg IH BID #1 inh 03/28/17 Diskus] Latanoprost 0.005% Eye Drops 1 drop AD HS #1 bottle 03/28/17 [Xalatan 0.005% Eye Drops -] Lisinopril [Prinivil] 10 mg PO DAILY@0600 #30 tablet 03/28/17 Metoprolol Succinate [Toprol XL -] 50 mg PO DAILY #30 tab 03/28/17 Tamsulosin HCl [Flomax -] 0.4 mg PO DAILY #30 cap 03/28/17 Timolol 0.5% [Timoptic 0.5%] 1 drop OU DAILY #1 bottle 03/28/17 PE: per resident's note ASSESSMENT AND PLAN: Patient is a 81M with multiple medical problems presents to the ED with a 2 day history of chest pain. # Acute Chest pain syndrome resolved ( no further chest pain) with recent pci with stent on Aspirin and plavix presents with chest with no radiation to the back or neck area. With a high heart score of 5. Continue plavix/aspirin daily, hold statin, Continue ASA indefinitely and Plavix for 1 year. Echo and stress test as per discussion with the safety engineer pressure vessels. 2 sets of troponins are negative , 3rd trop.pending Stop Atorvastatin for now - then restart at a lower dose to keep LDL 65-70, Patient's LDL is in 30s. As per cardiology: Once ruled out with negative enzymes, consider nuclear stress testing and transthoracic echocardiography to assess LV/RV and valvular function before transferring back to alcohol rehab Patient is going for stress test and echo on Friday # Hx of HTN continue meds. Continue BB, Steven-I # Hx of ETOH dependence now enrolled in rehab # Hx of HLD; hold it for now since LDL is in 30's # BPH: restart flomax # depression: restart escitalopram 5mg po daily #Asthma/COPD: Bronchodilators PRN #Glaucoma/Cataracts: on timolol and Xalatan eye drops DVT PX; hep.sq
[2017-03-30] MEDS: NICOTINE 14 MG/24 HOURS TOPICAL PATCH TD SCH (14:51)
[2017-03-30] MEDS: LATANOPROST 0.005% OPHTH SOLN 2.5ML BOTTLE OU SCH (21:46)
[2017-03-30] MEDS: MOMETASONE FUROATE 220 MCG/IH INHALER IH SCH (21:49)
[2017-03-31] MEDS: LISINOPRIL 10 MG TABLET (FP) PO SCH (05:58)
[2017-03-31] MEDS: HEPARIN NA (PORCINE) 5,000 UNITS/ML 1ML VIAL SQ SCH ×2 (10:04→21:32)
[2017-03-31] MEDS: ASPIRIN 81 MG CHEWABLE TABLETS PO SCH (10:05)
[2017-03-31] MEDS: THIAMINE HCL 100 MG TABLET (FP) PO SCH (10:05)
[2017-03-31] MEDS: FOLIC ACID 1 MG TABLET (FP) PO SCH (10:05)
[2017-03-31] MEDS: CLOPIDOGREL BISULFATE 75 MG TABLET (FP) PO SCH (10:05)
[2017-03-31] MEDS: TAMSULOSIN HCL 0.4 MG CAP.ER.24H (FP) PO SCH (10:05)
[2017-03-31] MEDS: ESCITALOPRAM OXALATE 10 MG TABLET (FP) PO SCH (10:05)
[2017-03-31] MEDS: TIMOLOL 0.5% OPHTHALMIC SOL 5 ML BOTTLE OU SCH (10:07)
[2017-03-31] MEDS: NICOTINE 14 MG/24 HOURS TOPICAL PATCH TD SCH (10:07)
[2017-03-31] MEDS: METOPROLOL SUCCINATE 50 MG TAB.SR.24H (FP) PO SCH (10:07)
--- NOTE | 2017-03-31 10:37 | PN ---
Progress Note, Physician Chief Complaint: Not in distress this am History of Present Illness: Patient was seen and examined. Awake and alert. Chart was reviewed Denies chest pain, SOB or palpitations - Current Medication List Current Medications: Active Medications Aspirin (Asa -) 81 mg PO DAILY [facility] Last Admin: 03/31/17 10:05 Dose: 81 mg Clopidogrel Bisulfate (Plavix -) 75 mg PO DAILY [facility] Last Admin: 03/31/17 10:05 Dose: 75 mg Escitalopram Oxalate (Lexapro -) 5 mg PO DAILY [facility] Last Admin: 03/31/17 10:05 Dose: 5 mg Folic Acid (Folic Acid -) 1 mg PO DAILY [facility] Last Admin: 03/31/17 10:05 Dose: 1 mg Heparin Sodium (Porcine) (Heparin -) 5,000 unit SQ BID [facility] Last Admin: 03/31/17 10:04 Dose: 5,000 unit Latanoprost (Xalatan 0.005% Eye Drops -) 1 drop OU HS [facility] Last Admin: 03/30/17 21:46 Dose: 1 drop Lisinopril (Prinivil) 10 mg PO DAILY@0600 [facility] Last Admin: 03/31/17 05:58 Dose: 10 mg Metoprolol Succinate (Toprol Xl -) 50 mg PO DAILY [facility] Last Admin: 03/31/17 10:07 Dose: 50 mg Mometasone Furoate (Asmanex 220mcg -) 1 puff IH HS [facility] Last Admin: 03/30/17 21:49 Dose: 1 inh Nicotine (Nicoderm Patch -) 14 mg TD DAILY [facility] Last Admin: 03/31/17 10:07 Dose: 14 mg Sodium Chloride ([place] Nasal [place] -) 2 spray NS TID PRN PRN Reason: NASAL CONGESTION Tamsulosin HCl (Flomax -) 0.4 mg PO DAILY@0830 [facility] Last Admin: 03/31/17 10:05 Dose: 0.4 mg Thiamine HCl (Vitamin B1 -) 100 mg PO DAILY [facility] Last Admin: 03/31/17 10:05 Dose: 100 mg Timolol Maleate (Timoptic 0.5%) 1 drop OU DAILY [facility] Last Admin: 03/31/17 10:07 Dose: 1 drop - Objective Vital Signs: Vital Signs Temperature 98.2 F 03/31/17 05:00 Pulse Rate 61 03/31/17 05:00 Respiratory Rate 18 03/31/17 05:00 Blood Pressure 148/74 03/31/17 05:00 O2 Sat by Pulse Oximetry (%) 100 03/30/17 21:00 Neck: Yes: Supple Cardiovascular: Yes: Regular Rate and Rhythm, S1, S2 Respiratory: Yes: CTA Bilaterally Gastrointestinal: Yes: Normal Bowel Sounds, Soft. No: Tenderness Edema: No Additional Findings/Remarks: - Review of Systems Constitutional: denies: Chills, Fever Cardiovascular: reports: Chest Pain. denies: Palpitations, Shortness of Breath Respiratory: denies: Cough, Hemoptysis, Orthopnea, PND, SOB, SOB on Exertion Gastrointestinal: denies: Abdominal Pain, Constipation, Diarrhea, Melena, Nausea , Rectal Bleeding, Vomiting Neurological: denies: Dizziness, Headache, Seizure, Syncope Labs: CBC, BMP 03/29/17 06:00 03/29/17 06:00 Problem List - Problems (1) Chest pain Code(s): R07.9 - CHEST PAIN, UNSPECIFIED Qualifiers: Chest pain type: unspecified Qualified Code(s): R07.9 - Chest pain, unspecified (2) Alcohol dependence Code(s): F10.20 - ALCOHOL DEPENDENCE, UNCOMPLICATED Qualifiers: Substance use status: uncomplicated Qualified Code(s): F10.20 - Alcohol dependence, uncomplicated (3) Hyperlipidemia Code(s): E78.5 - HYPERLIPIDEMIA, UNSPECIFIED Qualifiers: Hyperlipidemia type: pure hypercholesterolemia Qualified Code(s): E78.00 - Pure hypercholesterolemia, unspecified; E78.0 - Pure hypercholesterolemia (4) Hypertension Code(s): I10 - ESSENTIAL (PRIMARY) HYPERTENSION Qualifiers: Hypertension type: essential hypertension Qualified Code(s): I10 - Essential (primary) hypertension (5) CAD (coronary artery disease) Code(s): I25.10 - ATHSCL HEART DISEASE OF [place] CORONARY ARTERY W/O ANG PCTRS Qualifiers: Coronary Disease-Associated Artery/Lesion type: [place] artery [place] vs. transplanted heart: [place] heart Associated angina: with stable angina Qualified Code(s): I25.118 - Atherosclerotic heart disease of [place] coronary artery with other forms of angina pectoris (6) History of percutaneous coronary intervention Code(s): Z98.890 - OTHER SPECIFIED POSTPROCEDURAL STATES Assessment/Plan 1. Chest pain syndrome with underlying coronary artery disease S/P PCI/stent 6 months ago, angina pectoris 2. Hypertension 3. ETOH dependence now enrolled in rehab PLAN: 1. Ruled out for AR with negative troponins 2. Continue Metoprolol and Lisinopril (uptitrate) 3. Stop Atorvastatin for now - then restart at a lower dose to keep LDL 65-70 - restart Atorvastatin 10 mg once a day when he is ready for discharge and lipid panel can be followed as outpatient 4. Continue ASA indefinitely and Plavix for 1 year 5. Once ruled out with negative enzymes, consider nuclear stress testing and transthoracic echocardiography to assess LV/RV and valvular function before transferring back to alcohol rehab Further plans are to follow Burt Macias MD
[2017-03-31] MEDS ORDERED: LISINOPRIL 20 MG TABLET (FP) PO SCH (11:30)
--- NOTE | 2017-03-31 17:26 | PN ---
Progress Note (short form) - Note Progress Note: Comfortable with no acute distress. No further chest pain. Temperature 98.2 F 03/31/17 13:50 Pulse Rate 75 03/31/17 13:50 Respiratory Rate 18 03/31/17 13:50 Blood Pressure 139/79 03/31/17 13:50 O2 Sat by Pulse Oximetry (%) 100 03/31/17 09:00 GENERAL: Awake, alert, and fully oriented to person place and time. No acute distress. EYES: Pupils equal, round and reactive to light, extraocular movements intact EARS, NOSE, THROAT: Moist mucous membranes. NECK: supple, No JVD LUNGS: Breath sounds equal, clear to auscultation bilaterally. No wheezes, and no crackles. No accessory muscle use. HEART: Regular rate and rhythm, normal S1 and S2 positive, ANTONELLA 2/6 ABDOMEN: Soft, nontender, not distended, normoactive bowel sounds, no guarding, no rebound MUSCULOSKELETAL: No CVA tenderness. EXTREMITIES warm, well-perfused. No calf tenderness. No peripheral edema. NEUROLOGICAL: Cranial nerves II-XII grossly intact. Normal speech. Gait not observed PSYCHIATRIC: Cooperative. Good eye contact. Appropriate mood and affect. SKIN: Warm, dry, normal turgor, no rashes or lesions noted, normal capillary refill. CBCD WBC 4.8 K/mm3 (4.0-10.0) 03/29/17 06:00 RBC 3.87 M/mm3 (4.00-5.60) L 03/29/17 06:00 Hgb 13.3 GM/dL (11.7-16.9) D 03/29/17 06:00 Hct 39.8 % (35.4-49) 03/29/17 06:00 MCV 102.9 fl (80-96) H 03/29/17 06:00 MCHC 33.3 g/dl (32.0-35.9) 03/29/17 06:00 RDW 15.4 % (11.9-15.9) 03/29/17 06:00 Plt Count 188 K/MM3 (134-434) 03/29/17 06:00 MPV 10.4 fl (7.5-11.1) 03/29/17 06:00 CMP Sodium 144 mmol/L (136-145) 03/29/17 06:00 Potassium 4.7 mmol/L (3.5-5.1) D 03/29/17 06:00 Chloride 106 mmol/L (98-107) 03/29/17 06:00 Carbon Dioxide 33 mmol/L (21-32) H 03/29/17 06:00 Anion Gap 5 (8-16) L 03/29/17 06:00 BUN 16 mg/dL (7-18) D 03/29/17 06:00 Creatinine 0.8 mg/dL (0.7-1.3) 03/29/17 06:00 Creat Clearance w eGFR > 60 (>60) 03/28/17 23:11 Random Glucose 90 mg/dL (74-106) 03/29/17 06:00 Calcium 9.4 mg/dL (8.5-10.1) 03/29/17 06:00 Total Bilirubin 0.3 mg/dL (0.2-1.0) D 03/28/17 23:11 AST 21 U/L (15-37) 03/28/17 23:11 ALT 28 U/L (12-78) D 03/28/17 23:11 Alkaline Phosphatase 93 U/L (45-117) 03/28/17 23:11 Total Protein 6.9 g/dl (6.4-8.2) 03/28/17 23:11 Albumin 3.3 g/dl (3.4-5.0) L 03/28/17 23:11 CARDIAC ENZYMES Creatine Kinase 79 IU/L (39-308) 03/29/17 13:18 Troponin I < 0.02 ng/ml (0.00-0.05) 03/31/17 07:00 Current Medications Generic Name Dose Route Start Last Admin Trade Name Freq PRN Reason Stop Dose Admin Aspirin 81 mg 03/29/17 10:00 03/31/17 10:05 Asa - PO 81 mg DAILY ZOYA Administration Clopidogrel Bisulfate 75 mg 03/29/17 10:00 03/31/17 10:05 Plavix - PO 75 mg DAILY ZOYA Administration Escitalopram Oxalate 5 mg 03/29/17 10:00 03/31/17 10:05 Lexapro - PO 5 mg DAILY ZOYA Administration Folic Acid 1 mg 03/29/17 10:00 03/31/17 10:05 Folic Acid - PO 1 mg DAILY ZOYA Administration Heparin Sodium (Porcine) 5,000 unit 03/29/17 22:00 03/31/17 10:04 Heparin - SQ 5,000 unit BID ZOYA Administration Latanoprost 1 drop 03/29/17 22:00 03/30/17 21:46 Xalatan 0.005% Eye Drops - OU 1 drop HS ZOYA Administration Lisinopril 20 mg 04/01/17 06:00 Prinivil PO DAILY@0600 ZOYA Metoprolol Succinate 50 mg 03/29/17 10:00 03/31/17 10:07 Toprol Xl - PO 50 mg DAILY ZOYA Administration Mometasone Furoate 1 puff 03/29/17 22:00 03/30/17 21:49 Asmanex 220mcg - IH 1 inh HS ZOYA Administration Nicotine 14 mg 03/30/17 14:00 03/31/17 10:07 Nicoderm Patch - TD 14 mg DAILY ZOYA Administration Sodium Chloride 2 spray 03/30/17 13:50 [place] - NS TID PRN NASAL CONGESTION Tamsulosin HCl 0.4 mg 03/29/17 08:30 03/31/17 10:05 Flomax - PO 0.4 mg DAILY@0830 [facility] Administration Thiamine HCl 100 mg 03/29/17 10:00 03/31/17 10:05 Vitamin B1 - PO 100 mg DAILY ZOYA Administration Timolol Maleate 1 drop 03/29/17 10:00 03/31/17 10:07 Timoptic 0.5% OU 1 drop DAILY ZOYA Administration Home Medications Medication Instructions Recorded Nitroglycerin Sublingual 0.4 mg SL ONCE 03/18/17 [Nitrostat -] Quetiapine Fumarate [Seroquel -] 25 mg PO BID 03/18/17 Sertraline HCl [Zoloft -] 25 mg PO DAILY 03/18/17 Aspirin [ASA -] 81 mg PO DAILY #30 tab 03/28/17 Atorvastatin Ca [Lipitor] 80 mg PO HS #30 tab 03/28/17 Clopidogrel Bisulfate [Plavix -] 75 mg PO DAILY #30 tab 03/28/17 Fluticasone Propionate [Flovent 50 mcg IH BID #1 inh 03/28/17 Diskus] Latanoprost 0.005% Eye Drops 1 drop AD HS #1 bottle 03/28/17 [Xalatan 0.005% Eye Drops -] Lisinopril [Prinivil] 10 mg PO DAILY@0600 #30 tablet 03/28/17 Metoprolol Succinate [Toprol XL -] 50 mg PO DAILY #30 tab 03/28/17 Tamsulosin HCl [Flomax -] 0.4 mg PO DAILY #30 cap 03/28/17 Timolol 0.5% [Timoptic 0.5%] 1 drop OU DAILY #1 bottle 03/28/17 ASSESSMENT AND PLAN: Patient is a 81M with multiple medical problems presents to the ED with a 2 day history of chest pain. # Acute Chest pain syndrome with recent pci with stent on Aspirin and plavix presents with chest pain with no radiation to the back or neck area. With a high heart score of 5. Continue plavix/aspirin daily, hold statin, Continue ASA indefinitely and Plavix for 1 year. Echo and stress test as per discussion with the electrician master. 2 sets of troponins are negative , 3rd trop.pending Stop Atorvastatin for now - then restart at a lower dose to keep LDL 65-70, Patient's LDL is in 30s. As per cardiology: Once ruled out with negative enzymes, consider nuclear stress testing and transthoracic echocardiography to assess LV/RV and valvular function before transferring back to alcohol rehab # Hx of HTN continue meds. Continue BB, Steven-I # Hx of ETOH dependence now enrolled in rehab # Hx of HLD; hold it for now since LDL is in 30's # BPH: restart flomax # depression: restart escitalopram 5mg po daily #Asthma/COPD: Bronchodilators PRN #Glaucoma/Cataracts: on timolol and Xalatan eye drops DVT PX; hep.sq Going for stress test in am and ECHO, once negative can be discharge back to rehab. Visit type - Emergency Visit Emergency Visit: Yes ED Registration Date: 03/29/17 Care time: The patient presented to the Emergency Department on the above date and was hospitalized for further evaluation of their emergent condition. - New Patient This patient is new to me today: No - Critical Care Critical Care patient: No
[2017-03-31] MEDS ORDERED: ACETAMINOPHEN 325 MG TABLET (FP) PO ONE (19:58)
[2017-03-31] MEDS: MOMETASONE FUROATE 220 MCG/IH INHALER IH SCH (21:31)
[2017-03-31] MEDS: LATANOPROST 0.005% OPHTH SOLN 2.5ML BOTTLE OU SCH (21:31)
[2017-03-31] MEDS ORDERED: ZOLPIDEM TARTRATE 5 MG TABLET PO ONE (21:42)
[2017-04-01] MEDS: LISINOPRIL 20 MG TABLET (FP) PO SCH (05:56)
[2017-04-01 07:56] LABS: CHOLESTEROL 100 mg/dL (50-200)
--- NOTE | 2017-04-01 08:07 | PN ---
Progress Note (short form) - Note Progress Note: Chief Complaint: Events noted, notes reviewed, denies any chest pain or dyspnea History of Present Illness: Seen and examined on telemetry. Events noted, notes reviewed, denies any chest pain or dyspnea - Current Medication List Current Medications Aspirin (Asa -) 81 mg PO DAILY [facility] Last Admin: 03/31/17 10:05 Dose: 81 mg Clopidogrel Bisulfate (Plavix -) 75 mg PO DAILY [facility] Last Admin: 03/31/17 10:05 Dose: 75 mg Escitalopram Oxalate (Lexapro -) 5 mg PO DAILY [facility] Last Admin: 03/31/17 10:05 Dose: 5 mg Folic Acid (Folic Acid -) 1 mg PO DAILY [facility] Last Admin: 03/31/17 10:05 Dose: 1 mg Heparin Sodium (Porcine) (Heparin -) 5,000 unit SQ BID [facility] Last Admin: 03/31/17 21:32 Dose: 5,000 unit Latanoprost (Xalatan 0.005% Eye Drops -) 1 drop OU HS [facility] Last Admin: 03/31/17 21:31 Dose: 1 drop Lisinopril (Prinivil) 20 mg PO DAILY@0600 [facility] Last Admin: 04/01/17 05:56 Dose: Not Given Metoprolol Succinate (Toprol Xl -) 50 mg PO DAILY [facility] Last Admin: 03/31/17 10:07 Dose: 50 mg Mometasone Furoate (Asmanex 220mcg -) 1 puff IH HS [facility] Last Admin: 03/31/17 21:31 Dose: 1 inh Nicotine (Nicoderm Patch -) 14 mg TD DAILY [facility] Last Admin: 03/31/17 10:07 Dose: 14 mg Sodium Chloride ([place] Nasal [place] -) 2 spray NS TID PRN PRN Reason: NASAL CONGESTION Tamsulosin HCl (Flomax -) 0.4 mg PO DAILY@0830 [facility] Last Admin: 03/31/17 10:05 Dose: 0.4 mg Thiamine HCl (Vitamin B1 -) 100 mg PO DAILY [facility] Last Admin: 03/31/17 10:05 Dose: 100 mg Timolol Maleate (Timoptic 0.5%) 1 drop OU DAILY [facility] Last Admin: 03/31/17 10:07 Dose: 1 drop Review of Systems Constitutional: denies: Chills Cardiovascular: As noted above Respiratory: denies: Cough or Sputum Production Gastrointestinal: denies: Nausea, Vomiting, Diarrhea, Constipation or Abdominal Pain Musculoskeletal: No Symptoms Reported Neurological: denies: Dizziness or Headache - Objective Vital Signs: Last Vital Signs Temp Pulse Resp BP Pulse Ox 97.6 F 51 L 17 136/73 97 04/01/17 06:00 04/01/17 06:00 04/01/17 06:00 04/01/17 06:00 04/01/17 06:00 Intake & Output 03/29/17 03/30/17 03/31/17 04/01/17 23:59 23:59 23:59 23:59 Intake Total 300 900 440 0 Balance 300 900 440 0 Weight 160 lb Neck: Supple Negative JVD No Bruit Cardiovascular: S1 S2 Regular Rate and Rhythm Respiratory: Cear to A&P Bilaterally Gastrointestinal: Soft benign Normal Bowel Sounds Ext: No Edema Labs: CBC, BMP 03/29/17 06:00 03/29/17 06:00 Hepatic Panel Total Bilirubin 0.3 mg/dL (0.2-1.0) D 03/28/17 23:11 AST 21 U/L (15-37) 03/28/17 23:11 ALT 28 U/L (12-78) D 03/28/17 23:11 Alkaline Phosphatase 93 U/L (45-117) 03/28/17 23:11 Albumin 3.3 g/dl (3.4-5.0) L 03/28/17 23:11 Troponin, BNP 03/31/17 07:00 Troponin I < 0.02 Assessment/Plan ASSESSMENT: 1. Chest pain syndrome in a patient with known history of coronary artery disease post PCI/stent, angina pectoris 2. Hypertension 3. Hyperlipidemia 4. History of ETOH dependence 5. Tobacco abuse PLAN: 1. Continue Metoprolol 2. Continue Lisinopril 3. Resume Lipitor 4. Continue ASA and Plavix 5. Counselled smoking cessation and abstinence 6. Plan to proceed with echocardiography and MPI study to evaluate the above noted presentation Kitty Gonzales M.D.
[2017-04-01] MEDS: ASPIRIN 81 MG CHEWABLE TABLETS PO SCH ×2 (09:23→13:20)
[2017-04-01] MEDS: TAMSULOSIN HCL 0.4 MG CAP.ER.24H (FP) PO SCH ×2 (09:23→13:20)
[2017-04-01] MEDS: FOLIC ACID 1 MG TABLET (FP) PO SCH ×2 (09:24→13:21)
[2017-04-01] MEDS: CLOPIDOGREL BISULFATE 75 MG TABLET (FP) PO SCH ×2 (09:25→13:22)
[2017-04-01] MEDS: METOPROLOL SUCCINATE 50 MG TAB.SR.24H (FP) PO SCH ×2 (09:25→13:22)
[2017-04-01] MEDS: ESCITALOPRAM OXALATE 10 MG TABLET (FP) PO SCH ×3 (09:25→13:22)
[2017-04-01] MEDS ORDERED: DIPYRIDAMOLE STRESS TEST 41.5 MG in DEXTROSE 5%-WATER - 33.2 ML IVPB ONE (10:00)
[2017-04-01] MEDS: HEPARIN NA (PORCINE) 5,000 UNITS/ML 1ML VIAL SQ SCH ×3 (13:18→21:39)
[2017-04-01] MEDS: NICOTINE 14 MG/24 HOURS TOPICAL PATCH TD SCH (13:18)
[2017-04-01] MEDS: TIMOLOL 0.5% OPHTHALMIC SOL 5 ML BOTTLE OU SCH (13:19)
[2017-04-01] MEDS: THIAMINE HCL 100 MG TABLET (FP) PO SCH (13:24)
--- NOTE | 2017-04-01 15:23 | PN ---
Physical Exam: SUBJECTIVE: Patient seen and examined. No acute events over night. Offers no new complaints. OBJECTIVE: Vital Signs Period Temp Pulse Resp BP Sys/Chou Pulse Ox Last 24 Hr 97.6 F-98.7 F 51-60 17-20 136-159/72-83 97-100 GENERAL: The patient is awake, alert, and fully oriented, in no acute distress. HEAD: Normal with no signs of trauma. EYES: PERRL, extraocular movements intact, sclera anicteric, conjunctiva clear. No ptosis. ENT: oropharynx clear without exudates, moist mucous membranes. NECK: supple. LUNGS: Breath sounds equal, clear to auscultation bilaterally, no wheezes, no crackles, no accessory muscle use. HEART: Regular rate and rhythm, S1, S2 without murmur, rub or gallop. ABDOMEN: Soft, nontender, nondistended, normoactive bowel sounds, no guarding, no rebound, no hepatosplenomegaly, no masses. EXTREMITIES: 2+ pulses, warm, well-perfused, no edema. PSYCH: Normal mood, normal affect. SKIN: Warm, dry, normal turgor, no rashes or lesions noted Laboratory Results - last 24 hr 04/01/17 05:35 Triglycerides 44 D Cholesterol 100 D Active Medications Generic Name Dose Route Start Last Admin Trade Name Juanito PRN Reason Stop Dose Admin Aspirin 81 mg 03/29/17 10:00 04/01/17 13:20 Asa - PO 81 mg DAILY ZOYA Administration Atorvastatin Calcium 10 mg 04/01/17 22:00 Lipitor - PO HS ZOYA Clopidogrel Bisulfate 75 mg 03/29/17 10:00 04/01/17 13:22 Plavix - PO 75 mg DAILY ZOYA Administration Escitalopram Oxalate 5 mg 03/29/17 10:00 04/01/17 13:22 Lexapro - PO 5 mg DAILY ZOYA Administration Folic Acid 1 mg 03/29/17 10:00 04/01/17 13:21 Folic Acid - PO 1 mg DAILY ZOYA Administration Heparin Sodium (Porcine) 5,000 unit 03/29/17 22:00 04/01/17 13:29 Heparin - SQ 5,000 unit BID ZOYA Administration Latanoprost 1 drop 03/29/17 22:00 03/31/17 21:31 Xalatan 0.005% Eye Drops - OU 1 drop HS ZOYA Administration Lisinopril 20 mg 04/01/17 06:00 04/01/17 05:56 Prinivil PO Not Given DAILY@0600 ZOYA Metoprolol Succinate 50 mg 03/29/17 10:00 04/01/17 13:22 Toprol Xl - PO 50 mg DAILY [facility]OYA Administration Mometasone Furoate 1 puff 03/29/17 22:00 03/31/17 21:31 Asmanex 220mcg - IH 1 inh HS ZOYA Administration Nicotine 14 mg 03/30/17 14:00 04/01/17 13:18 Nicoderm Patch - TD 14 mg DAILY [facility]OYA Administration Sodium Chloride 2 spray 03/30/17 13:50 [place] Nasal [place] - NS TID PRN NASAL CONGESTION Tamsulosin HCl 0.4 mg 03/29/17 08:30 04/01/17 13:20 Flomax - PO 0.4 mg DAILY@0830 [facility]A Administration Thiamine HCl 100 mg 03/29/17 10:00 04/01/17 13:24 Vitamin B1 - PO 100 mg DAILY [facility]OYA Administration Timolol Maleate 1 drop 03/29/17 10:00 04/01/17 13:19 Timoptic 0.5% OU 1 drop DAILY ZOYA Administration ASSESSMENT/PLAN: Patient is a 81M with multiple medical problems presents to the ED with a 2 day history of chest pain. #Acute chest pain syndrome: - s/p PCI with stent on Aspirin/Plavix (August 2016) -Continue plavix 75mgm for at least 1 year -Continue Aspirin -BP control -Stop atorvastatin, restart at a lower dose to keep LDL between 65-70 -F/U Nuclear stress test -F/U AM labs -troponins negative #Alcohol Abuse: -enrolled in rehab -no signs/symptoms of intoxication or withdrawals at this time -counselled on risks of alcohol abuse including the many ways it can directly and indirectly lead to #Nictotine Dependence -Nicoderm 14mg #HTN: -resume Metoprolol -resume lisinopril #HLD: -Stop atorvastatin #BPH: -restart flomax #Depression: - restart escitalopram 5mg #Asthma/COPD: Bronchodilators PRN #Glaucoma/Cataracts: - Timolol and Xalatan eye drops DVT PX: hep.sq Visit type - Emergency Visit Emergency Visit: Yes ED Registration Date: 03/29/17 Care time: The patient presented to the Emergency Department on the above date and was hospitalized for further evaluation of their emergent condition. - New Patient This patient is new to me today: No - Critical Care Critical Care patient: No
--- NOTE | 2017-04-01 19:56 | PN ---
Teaching Attending Note Name of Resident: Blue Medina ATTENDING PHYSICIAN STATEMENT I saw and evaluated the patient. I reviewed the resident's note and discussed the case with the resident. I agree with the resident's findings and plan as documented. SUBJECTIVE: Patient has no further chest pain. OBJECTIVE: Vital Signs Temperature 99.3 F 04/01/17 17:00 Pulse Rate 51 L 04/01/17 17:00 Respiratory Rate 20 04/01/17 17:00 Blood Pressure 143/71 04/01/17 17:00 O2 Sat by Pulse Oximetry (%) 100 04/01/17 09:00 CBCD WBC 4.8 K/mm3 (4.0-10.0) 03/29/17 06:00 RBC 3.87 M/mm3 (4.00-5.60) L 03/29/17 06:00 Hgb 13.3 GM/dL (11.7-16.9) D 03/29/17 06:00 Hct 39.8 % (35.4-49) 03/29/17 06:00 MCV 102.9 fl (80-96) H 03/29/17 06:00 MCHC 33.3 g/dl (32.0-35.9) 03/29/17 06:00 RDW 15.4 % (11.9-15.9) 03/29/17 06:00 Plt Count 188 K/MM3 (134-434) 03/29/17 06:00 MPV 10.4 fl (7.5-11.1) 03/29/17 06:00 CMP Sodium 144 mmol/L (136-145) 03/29/17 06:00 Potassium 4.7 mmol/L (3.5-5.1) D 03/29/17 06:00 Chloride 106 mmol/L (98-107) 03/29/17 06:00 Carbon Dioxide 33 mmol/L (21-32) H 03/29/17 06:00 Anion Gap 5 (8-16) L 03/29/17 06:00 BUN 16 mg/dL (7-18) D 03/29/17 06:00 Creatinine 0.8 mg/dL (0.7-1.3) 03/29/17 06:00 Creat Clearance w eGFR > 60 (>60) 03/28/17 23:11 Random Glucose 90 mg/dL (74-106) 03/29/17 06:00 Calcium 9.4 mg/dL (8.5-10.1) 03/29/17 06:00 Total Bilirubin 0.3 mg/dL (0.2-1.0) D 03/28/17 23:11 AST 21 U/L (15-37) 03/28/17 23:11 ALT 28 U/L (12-78) D 03/28/17 23:11 Alkaline Phosphatase 93 U/L (45-117) 03/28/17 23:11 Total Protein 6.9 g/dl (6.4-8.2) 03/28/17 23:11 Albumin 3.3 g/dl (3.4-5.0) L 03/28/17 23:11 CARDIAC ENZYMES Creatine Kinase 79 IU/L (39-308) 03/29/17 13:18 Troponin I < 0.02 ng/ml (0.00-0.05) 03/31/17 07:00 Current Medications Generic Name Dose Route Start Last Admin Trade Name Juanito PRN Reason Stop Dose Admin Aspirin 81 mg 03/29/17 10:00 04/01/17 13:20 Asa - PO 81 mg DAILY [facility] Administration Atorvastatin Calcium 10 mg 04/01/17 22:00 Lipitor - PO HS [facility] Clopidogrel Bisulfate 75 mg 03/29/17 10:00 04/01/17 13:22 Plavix - PO 75 mg DAILY [facility] Administration Escitalopram Oxalate 5 mg 03/29/17 10:00 04/01/17 13:22 Lexapro - PO 5 mg DAILY ZOYA Administration Folic Acid 1 mg 03/29/17 10:00 04/01/17 13:21 Folic Acid - PO 1 mg DAILY [facility] Administration Heparin Sodium (Porcine) 5,000 unit 03/29/17 22:00 04/01/17 13:29 Heparin - SQ 5,000 unit BID [facility] Administration Latanoprost 1 drop 03/29/17 22:00 03/31/17 21:31 Xalatan 0.005% Eye Drops - OU 1 drop HS [facility] Administration Lisinopril 20 mg 04/01/17 06:00 04/01/17 05:56 Prinivil PO Not Given DAILY@0600 [facility] Metoprolol Succinate 50 mg 03/29/17 10:00 04/01/17 13:22 Toprol Xl - PO 50 mg DAILY [facility]OYA Administration Mometasone Furoate 1 puff 03/29/17 22:00 03/31/17 21:31 Asmanex 220mcg - IH 1 inh HS ZOYA Administration Nicotine 14 mg 03/30/17 14:00 04/01/17 13:18 Nicoderm Patch - TD 14 mg DAILY ZOYA Administration Sodium Chloride 2 spray 03/30/17 13:50 [place] Nasal [place] - NS TID PRN NASAL CONGESTION Tamsulosin HCl 0.4 mg 03/29/17 08:30 04/01/17 13:20 Flomax - PO 0.4 mg DAILY@0830 [facility]OYA Administration Thiamine HCl 100 mg 03/29/17 10:00 04/01/17 13:24 Vitamin B1 - PO 100 mg DAILY ZOYA Administration Timolol Maleate 1 drop 03/29/17 10:00 04/01/17 13:19 Timoptic 0.5% OU 1 drop DAILY ZOYA Administration Home Medications Medication Instructions Recorded Nitroglycerin Sublingual 0.4 mg SL ONCE 03/18/17 [Nitrostat -] Quetiapine Fumarate [Seroquel -] 25 mg PO BID 03/18/17 Sertraline HCl [Zoloft -] 25 mg PO DAILY 03/18/17 Aspirin [ASA -] 81 mg PO DAILY #30 tab 03/28/17 Atorvastatin Ca [Lipitor] 80 mg PO HS #30 tab 03/28/17 Clopidogrel Bisulfate [Plavix -] 75 mg PO DAILY #30 tab 03/28/17 Fluticasone Propionate [Flovent 50 mcg IH BID #1 inh 03/28/17 Diskus] Latanoprost 0.005% Eye Drops 1 drop AD HS #1 bottle 03/28/17 [Xalatan 0.005% Eye Drops -] Lisinopril [Prinivil] 10 mg PO DAILY@0600 #30 tablet 03/28/17 Metoprolol Succinate [Toprol XL -] 50 mg PO DAILY #30 tab 03/28/17 Tamsulosin HCl [Flomax -] 0.4 mg PO DAILY #30 cap 03/28/17 Timolol 0.5% [Timoptic 0.5%] 1 drop OU DAILY #1 bottle 03/28/17 ASSESSMENT AND PLAN: Patient is a 81M with multiple medical problems presents to the ED with a 2 day history of chest pain. # Acute Chest pain syndrome with recent pci with stent on Aspirin and plavix presents with chest pain with no radiation to the back or neck area. With a high heart score of 5. Continue plavix/aspirin daily, hold statin, Continue ASA indefinitely and Plavix for 1 year. Echo and stress test as per discussion with the upholstery trimmer. 3 sets of troponins are negative.Stop Atorvastatin for now - then restart at a lower dose to keep LDL 65-70, Patient's LDL is in 30s. As per cardiology: Patient went for persantine stress test with positive result , further arrangement as per cardio. # Hx of HTN continue meds. Continue BB, Steven-I # Hx of ETOH dependence now enrolled in rehab # Hx of HLD; hold it for now since LDL is in 30's # BPH: restart flomax # depression: restart escitalopram 5mg po daily #Asthma/COPD: Bronchodilators PRN #Glaucoma/Cataracts: on timolol and Xalatan eye drops DVT PX; hep.sq positive stress test further arrangments/therapy per cardio
[2017-04-01] MEDS: ATORVASTATIN CA 10 MG TABLET (FP) PO SCH (21:39)
[2017-04-01] MEDS: MOMETASONE FUROATE 220 MCG/IH INHALER IH SCH (21:43)
[2017-04-01] MEDS: LATANOPROST 0.005% OPHTH SOLN 2.5ML BOTTLE OU SCH (21:43)
[2017-04-02] MEDS: LISINOPRIL 20 MG TABLET (FP) PO SCH (06:17)
[2017-04-02] MEDS: HEPARIN NA (PORCINE) 5,000 UNITS/ML 1ML VIAL SQ SCH ×3 (06:17→22:36)
--- NOTE | 2017-04-02 07:31 | PN ---
Progress Note (short form) - Note Progress Note: Chief Complaint: Events noted, notes reviewed, denies any chest pain or dyspnea History of Present Illness: Seen and examined on telemetry. Events noted, notes reviewed, denies any chest pain or dyspnea Echocardiography report noted normal LV systolic function, mild to moderate MR and TR with no evidence of pulmonary HTN MPI report noted inferior defect ischemia and infarct with wall motion abnormality and reduced LVEF at rest 47%, normal LVEF post Persantine infusion 57% Discrepancy between the two studies in reference to wall motion abnormality and LVEF measurements, study to be reviewed, regardless will plan to treat the patient medically and if symptoms recur and/or persist recommend [facility] & coronary angiography - Current Medication List Current Medications Aspirin (Asa -) 81 mg PO DAILY [facility] Last Admin: 04/01/17 13:20 Dose: 81 mg Atorvastatin Calcium (Lipitor -) 10 mg PO HS [facility] Last Admin: 04/01/17 21:39 Dose: 10 mg Clopidogrel Bisulfate (Plavix -) 75 mg PO DAILY [facility] Last Admin: 04/01/17 13:22 Dose: 75 mg Escitalopram Oxalate (Lexapro -) 5 mg PO DAILY [facility] Last Admin: 04/01/17 13:22 Dose: 5 mg Folic Acid (Folic Acid -) 1 mg PO DAILY [facility] Last Admin: 04/01/17 13:21 Dose: 1 mg Heparin Sodium (Porcine) (Heparin -) 5,000 unit SQ TID [facility] Last Admin: 04/02/17 06:17 Dose: 5,000 unit Latanoprost (Xalatan 0.005% Eye Drops -) 1 drop OU [facility] Last Admin: 04/01/17 21:43 Dose: 1 drop Lisinopril (Prinivil) 20 mg PO DAILY@0600 [facility] Last Admin: 04/02/17 06:17 Dose: 20 mg Metoprolol Succinate (Toprol Xl -) 50 mg PO DAILY [facility] Last Admin: 04/01/17 13:22 Dose: 50 mg Mometasone Furoate (Asmanex 220mcg -) 1 puff IH [facility] Last Admin: 04/01/17 21:43 Dose: 1 inh Nicotine (Nicoderm Patch -) 14 mg TD DAILY [facility] Last Admin: 04/01/17 13:18 Dose: 14 mg Sodium Chloride ([place] Nasal [place] -) 2 spray NS TID PRN PRN Reason: NASAL CONGESTION Tamsulosin HCl (Flomax -) 0.4 mg PO DAILY@0830 [facility] Last Admin: 04/01/17 13:20 Dose: 0.4 mg Thiamine HCl (Vitamin B1 -) 100 mg PO DAILY [facility] Last Admin: 04/01/17 13:24 Dose: 100 mg Timolol Maleate (Timoptic 0.5%) 1 drop OU DAILY [facility] Last Admin: 04/01/17 13:19 Dose: 1 drop Review of Systems Constitutional: denies: Chills Cardiovascular: As noted above Respiratory: denies: Cough or Sputum Production Gastrointestinal: denies: Nausea, Vomiting, Diarrhea, Constipation or Abdominal Pain Musculoskeletal: No Symptoms Reported Neurological: denies: Dizziness or Headache - Objective Vital Signs: Last Vital Signs Temp Pulse Resp BP Pulse Ox 97.7 F 55 L 18 136/77 100 04/02/17 01:00 04/02/17 01:00 04/02/17 01:00 04/02/17 01:00 04/01/17 21:00 Intake & Output 03/30/17 03/31/17 04/01/17 04/02/17 23:59 23:59 23:59 23:59 Intake Total 900 440 640 Balance 900 440 640 Neck: Supple Negative JVD No Bruit Cardiovascular: S1 S2 Regular Rate and Rhythm Respiratory: Clear to A&P Bilaterally Gastrointestinal: Soft benign Normal Bowel Sounds Ext: No Edema Labs: CBC, BMP 03/29/17 06:00 BMP from this AM pending Hepatic Panel Total Bilirubin 0.3 mg/dL (0.2-1.0) D 03/28/17 23:11 AST 21 U/L (15-37) 03/28/17 23:11 ALT 28 U/L (12-78) D 03/28/17 23:11 Alkaline Phosphatase 93 U/L (45-117) 03/28/17 23:11 Albumin 3.3 g/dl (3.4-5.0) L 03/28/17 23:11 Assessment/Plan ASSESSMENT: 1. Chest pain syndrome, Coronary artery disease post PCI/stent, abnormal MPI study angina pectoris 2. Diastolic/systolic LV dysfunction with class 0 NYHA classification LV faillure 3. Hypertension 4. Hyperlipidemia 5. History of ETOH dependence 6. Tobacco abuse PLAN: 1. Continue Metoprolol 2. Continue Lisinopril 3. Add Nitrates 4. Continue Lipitor 5. Continue ASA and Plavix 6. Counselled smoking cessation and abstinence 7. As outlined above plan to treat the patient medically (therapy optimization) and if symptoms recur and/or persist recommend [facility] & coronary angiography, discussed in detail with the patient Kitty Gonzales M.D.
[2017-04-02 08:06] LABS: ANION GAP 8 (8-16); CALCIUM 9.3 mg/dL (8.5-10.1); CO2 30 mmol/L (21-32); CREATININE 0.9 mg/dL (0.7-1.3); GLUCOSE,RANDOM 85 mg/dL (74-106); MAGNESIUM 2.2 mg/dL (1.8-2.4); PHOSPHOROUS 3.5 mg/dL (2.5-4.9)
[2017-04-02] MEDS: TAMSULOSIN HCL 0.4 MG CAP.ER.24H (FP) PO SCH (10:36)
[2017-04-02] MEDS: ESCITALOPRAM OXALATE 10 MG TABLET (FP) PO SCH (10:36)
[2017-04-02] MEDS: CLOPIDOGREL BISULFATE 75 MG TABLET (FP) PO SCH (10:36)
[2017-04-02] MEDS: THIAMINE HCL 100 MG TABLET (FP) PO SCH (10:36)
[2017-04-02] MEDS: ASPIRIN 81 MG CHEWABLE TABLETS PO SCH (10:36)
[2017-04-02] MEDS: FOLIC ACID 1 MG TABLET (FP) PO SCH (10:36)
[2017-04-02] MEDS: NICOTINE 14 MG/24 HOURS TOPICAL PATCH TD SCH (10:36)
[2017-04-02] MEDS: TIMOLOL 0.5% OPHTHALMIC SOL 5 ML BOTTLE OU SCH (10:37)
[2017-04-02] MEDS: METOPROLOL SUCCINATE 50 MG TAB.SR.24H (FP) PO SCH ×2 (10:37→16:49)
--- NOTE | 2017-04-02 16:06 | PN ---
Teaching Attending Note Name of Resident: Blue Medina ATTENDING PHYSICIAN STATEMENT I saw and evaluated the patient. I reviewed the resident's note and discussed the case with the resident. I agree with the resident's findings and plan as documented. SUBJECTIVE: no cp or SOB , has no fever or chills. No CP OBJECTIVE: NAD CV : RRR Lungs : CTAB ext: no edema ASSESSMENT AND PLAN: 81M with h/o CAD and other medical problems who presented with CP , and was found to have abnormal Stress test 1- CP with h/o CAD s/p Stenting. Abn stresst test withischemic in inferior wall 2- h/o ETOH abuse , in rehab prior to presentation 3- h/o COPD 4- h/o HTN, HLP Plan : - echo and stress test reviewed. - cont BB And ACEI - cont lipitor - Cont ASA and plavix - medical mgt for now - Add Imdur - f/u with PCP and Card - d/w Dr. Siddiqi dispo : dc ( possibly back to rehab if accepted , otherwise home )
--- NOTE | 2017-04-02 18:15 | DS ---
Physical Exam: SUBJECTIVE: Patient seen and examined. No acute events over night. Offers no new complaints. OBJECTIVE: Vital Signs Period Temp Pulse Resp BP Sys/Chou Pulse Ox Last 24 Hr 97.7 F-98.2 F 50-81 18-18 133-157/69-90 98-100 PHYSICAL EXAM GENERAL: The patient is awake, alert, and fully oriented, in no acute distress. HEAD: Normal with no signs of trauma. EYES: PERRL, extraocular movements intact, sclera anicteric, conjunctiva clear. No ptosis. ENT: oropharynx clear without exudates, moist mucous membranes. NECK: supple. LUNGS: Breath sounds equal, clear to auscultation bilaterally, no wheezes, no crackles, no accessory muscle use. HEART: Regular rate and rhythm, S1, S2 without murmur, rub or gallop. ABDOMEN: Soft, nontender, nondistended, normoactive bowel sounds, no guarding, no rebound, no hepatosplenomegaly, no masses. EXTREMITIES: 2+ pulses, warm, well-perfused, no edema. PSYCH: Normal mood, normal affect. SKIN: Warm, dry, normal turgor, no rashes or lesions noted LABS Laboratory Results - last 24 hr 04/02/17 06:00 Sodium 142 Potassium 4.3 Chloride 104 Carbon Dioxide 30 Anion Gap 8 BUN 19 H Creatinine 0.9 Random Glucose 85 Calcium 9.3 Phosphorus 3.5 Magnesium 2.2 HOSPITAL COURSE: Date of Admission:03/29/17 Patient is a 81 yo m with a history of CAD (s/p stent Aug 2016), HTN, HLD, presented to the ED with chest pain and was found to have unstable angina with negative trops and no changes on EKG. He was followed by a stonemason and underwent nuclear stress testing which was remarkable for ischemia. Echocardiogram was also done and reviewed by the stonemason. Medical management is recommended at this time and the patient is to continue Aspirin, Plavix, Imdur, BB , ACEI, and lipitor. He will need to be followed up by his PCP and stonemason for further management of his condition. As outlined above plan to treat the patient medically (therapy optimization) and if symptoms recur and/or persist recommend [facility] & coronary angiography, discussed in detail with the patient. - s/p PCI with stent on Aspirin/Plavix (August 2016) -Given plavix 75mgm -Given Aspirin -BP control, BB, ACEI -troponins negative #Alcohol Abuse: -enrolled in rehab -no signs/symptoms of intoxication or withdrawals at this time -counselled on risks of alcohol abuse including the many ways it can directly and indirectly lead to #Nictotine Dependence -was given Nicoderm 14mg #HTN: -given Metoprolol -given lisinopril #HLD: -Continue 10mg Lipitor #BPH: -restart flomax #Asthma/COPD: Bronchodilators PRN #Glaucoma/Cataracts: - Timolol and Xalatan eye drops Date of Discharge: 04/02/17 Minutes to complete discharge: 45 Discharge Summary Reason For Visit: CHEST PAIN Current Active Problems Chest pain (Acute) CAD (coronary artery disease) (Chronic) History of percutaneous coronary intervention (Chronic) Condition: Stable - Instructions Diet, Activity, Other Instructions: Please call your primary care physician and make an appointment. You will need to see a stonemason to further manage your heart condition. You will be discharged with changes to your home medications. We added Imdur 30mg once a day. We also increased your lisinopril to 20 mg a day. And decreased Atorvastatin to 10mg. Continue all other medications as directed. If you don't improve and think your symptoms have worsened, please call your primary care doctor or call 911. Disposition: HOME - Home Medications Comprehensive Discharge Medication List: Ambulatory Orders Nitroglycerin Sublingual [Nitrostat -] 0.4 mg SL ONCE 03/18/17 Quetiapine Fumarate [Seroquel -] 25 mg PO BID 03/18/17 Sertraline HCl [Zoloft -] 25 mg PO DAILY 03/18/17 Aspirin [ASA -] 81 mg PO DAILY #30 tab 03/28/17 Clopidogrel Bisulfate [Plavix -] 75 mg PO DAILY #30 tab 03/28/17 Fluticasone Propionate [Flovent Diskus] 50 mcg IH BID #1 inh 03/28/17 Latanoprost 0.005% Eye Drops [Xalatan 0.005% Eye Drops -] 1 drop AD HS #1 bottle 03/28/17 Metoprolol Succinate [Toprol XL -] 50 mg PO DAILY #30 tab 03/28/17 Tamsulosin HCl [Flomax -] 0.4 mg PO DAILY #30 cap 03/28/17 Timolol 0.5% [Timoptic 0.5%] 1 drop OU DAILY #1 bottle 03/28/17 Atorvastatin Ca [Lipitor] 10 mg PO HS tablet 04/02/17 Isosorbide Mononitrate [Imdur -] 30 mg PO DAILY #30 tab.sr.24h 04/02/17 Lisinopril [Prinivil] 20 mg PO DAILY@0600 #30 tablet 04/02/17 This patient is new to me today: No Emergency Visit: Yes ED Registration Date: 03/29/17 Care time: The patient presented to the Emergency Department on the above date and was hospitalized for further evaluation of their emergent condition. Critical Care patient: No - Discharge Referral Referred to [facility] No
[2017-04-02] MEDS: ATORVASTATIN CA 10 MG TABLET (FP) PO SCH (22:36)
[2017-04-02] MEDS: MOMETASONE FUROATE 220 MCG/IH INHALER IH SCH (22:36)
[2017-04-02] MEDS: LATANOPROST 0.005% OPHTH SOLN 2.5ML BOTTLE OU SCH (22:36)
[2017-04-03] MEDS ORDERED: ACETAMINOPHEN 325 MG TABLET (FP) PO ONE (01:49)
[2017-04-03] MEDS ORDERED: LISINOPRIL 20 MG TABLET (FP) PO SCH (06:00)
[2017-04-03] MEDS: HEPARIN NA (PORCINE) 5,000 UNITS/ML 1ML VIAL SQ SCH (06:17)
[2017-04-03] MEDS: TAMSULOSIN HCL 0.4 MG CAP.ER.24H (FP) PO SCH (08:35)
[2017-04-03] MEDS: METOPROLOL SUCCINATE 50 MG TAB.SR.24H (FP) PO SCH (08:36)
[2017-04-03] MEDS: FOLIC ACID 1 MG TABLET (FP) PO SCH (08:36)
[2017-04-03] MEDS: ASPIRIN 81 MG CHEWABLE TABLETS PO SCH (08:36)
[2017-04-03] MEDS: NICOTINE 14 MG/24 HOURS TOPICAL PATCH TD SCH (08:36)
[2017-04-03] MEDS: CLOPIDOGREL BISULFATE 75 MG TABLET (FP) PO SCH (08:36)
[2017-04-03] MEDS: THIAMINE HCL 100 MG TABLET (FP) PO SCH (08:37)
[2017-04-03 08:54] VITALS: BP 144/76; PULSE 56; TEMP 98
== END 2017-04-03 08:48 | disposition home or self-care (01) | DRG 303 ==
LOC: JER 22:46 → JERBED 03-29 00:47 → UNDOADMIN 03-29 00:49 → JERBED 03-29 00:49 → J4W 03-29 17:25
PROVIDERS: ADMIT Internal Medicine; ATTEND Internal Medicine
DX: I25.110 Atherosclerotic heart disease of native coronary artery with unstable angina pectoris (principal); I10 Essential (primary) hypertension; E78.00 Pure hypercholesterolemia, unspecified; N40.0 Benign prostatic hyperplasia without lower urinary tract symptoms; Z95.5 Presence of coronary angioplasty implant and graft; M17.0 Bilateral primary osteoarthritis of knee; Z82.49 Family history of ischemic heart disease and other diseases of the circulatory system; J44.9 Chronic obstructive pulmonary disease, unspecified; F32.9 Major depressive disorder, single episode, unspecified; H40.9 Unspecified glaucoma; F10.20 Alcohol dependence, uncomplicated; F17.210 Nicotine dependence, cigarettes, uncomplicated
CPT/HCPCS: 36415; 71010-TC; 78452-TC; 80048; 80053; 80061; 83036; 83721; 83735; 83880; 84100; 84484; 85025; 85027; 85610; 90670; 93005; 93010; 93017; 93306-TC; 97116-GP; 97161-GP; 99285-25; A9502; J1644